=== PATIENT | male | born 1935 | race African-American/Black ===

== ENCOUNTER 2018-01-15 10:04 | Emergency (ER) | payer MEDICARE, OTHER ==
[~2018-01-15] VITALS: Ht 175.3 cm; Wt 90.7 kg
[~2018-01-15 10:04] MED LIST: ALBUTEROL2.5 MG/3 M HHN; ALENDRONAT70 MG/75 M PO; ATROVENT HFA12.9 GM IH; CALCIUM500 M3 PO; DULERA 100 MCG/13 GM INH; NORVASC2.5 MG ORAL; OMEPRAZOLE20 M2 ORAL; SIMVASTATIN20 MG ORAL; SPIRIVA INHALE1 PUF1 INH
[2018-01-15] MEDS ORDERED: ATORVASTATIN CA20 MG ORAL (10:14)
[2018-01-15] MEDS ORDERED: SYMBICORT 16010.2 G1 IH (10:14)
[2018-01-15 10:18] VITALS: BP 168/87
[2018-01-15] MEDS ORDERED: Isovue-300 100ml vial INJ PRN (10:30)
[2018-01-15 10:40] VITALS: BP 168/87
--- NOTE | 2018-01-15 11:00 | Emergency Room Report ---
History of Present Illness General Chief Complaint: General Complaint Source: Patient Present Illness HPI She states that he has had difficulty swallowing at times with food. He states that he will have to swallow multiple times in order to pass food. He states that occasionally he has had to vomit to expel the food. He was seen at his outpatient clinic several weeks ago. He was referred to a wage analyst and underwent evaluation by the wage analyst. He had planned to get an upper endoscopy and on the day he was scheduled for this the anesthesiologist declined the procedure because he was concerned of his age and history of lung cancer. The endoscopy was canceled. He did go back and see the wage analyst who now has him scheduled for an endoscopy on February 05 at [facility]. The patient states he would like a faster workup then February 05. He denies any current issues or pain. He has no food discomfort at this time. He is just hoping to see a wage analyst and undergo an endoscopy earlier. He currently has no other complaints. Allergies: Coded Allergies: No Known Allergies (Verified , 01/06/12) Patient History Past Medical History: see triage record, HTN, CAD, GERD, other - Lung Ca Social History: Denies: smoking, alcohol use, drug use Reviewed Nursing Documentation: PMH: Agreed; PSxH: Agreed Nursing Documentation-PMH Hx Cardiac Problems: Yes Hx Hypertension: Yes Hx COPD: Yes Hx Cancer: Yes Hx Gastrointestinal Problems: Yes Hx Neurological Problems: No Review of Systems All Other Systems: negative except mentioned in HPI Physical Exam Vital Signs Date Time Temp Pulse Resp B/P (MAP) Pulse Ox O2 Delivery O2 Flow Rate FiO2 01/15/18 10:10 97.7 79 20 168/87 100 Room Air 97.7 Sp02 EP Interpretation: reviewed, normal General Appearance: no apparent distress, alert, GCS 15, non-toxic Head: normocephalic, atraumatic Eyes: bilateral eye normal inspection, bilateral eye PERRL ENT: hearing grossly normal, normal pharynx, no angioedema, normal voice Neck: normal inspection Respiratory: no respiratory distress, no retraction, no accessory muscle use, speaking full sentences Rectal: deferred Musculoskeletal: gait/station normal Neurologic: alert, oriented x3, responsive, motor strength/tone normal, sensory intact, speech normal Psychiatric: judgement/insight normal, memory normal, mood/affect normal, no suicidal/homicidal ideation Skin: normal color, no rash, warm/dry, well hydrated Medical Decision Making Diagnostic Impression: Primary Impression: Dysphagia ER Course Patient has dysphagia. He is currently not in an acute episode. He has had a full workup by a wage analyst and is scheduled for a February 05 endoscopy. I had planned on doing a workup, however, after discussion with this patient I felt that this was unnecessary. The patient is not currently having any symptoms. The patient has a scheduled upper endoscopy with a wage analyst. Further discussion with the patient I educated him that if he were to consult with one of our gastroenterologists it would likely take longer given that the workup would have to be started from the beginning. The patient decided that he would just continue with his previously scheduled February 05 endoscopy. I did educate the patient on the signs and symptoms of a retained esophageal foreign body. He indicated understanding. He decided to leave without further workup and with my recommendation. The patient is given close return precautions and follow-up instructions. Last Vital Signs Date Time Temp Pulse Resp B/P (MAP) Pulse Ox O2 Delivery O2 Flow Rate FiO2 01/15/18 10:18 97.7 20 168/87 100 Room Air 97.7 01/15/18 10:10 79 Disposition: HOME, SELF-CARE Condition: Stable Referrals: NON PHYSICIAN (PCP) BIBI BRAXTON D.O. January 15, 2018 11:00
== END 2018-01-15 10:45 | disposition home or self-care (01) ==
LOC: EMR 10:19
DX: R13.10 Dysphagia, unspecified (principal); I10 Essential (primary) hypertension; J44.9 Chronic obstructive pulmonary disease, unspecified; I25.10 Atherosclerotic heart disease of native coronary artery without angina pectoris; Z85.118 Personal history of other malignant neoplasm of bronchus and lung
CPT/HCPCS: 99282

== ENCOUNTER 2018-09-22 13:05 | Inpatient (IN) | payer MEDICARE, OTHER ==
[~2018-09-22] VITALS: Ht 175.3 cm; Wt 72.6 kg
[~2018-09-22 13:05] MED LIST changes: +ATORVASTATIN CA20 MG ORAL; +SYMBICORT 16010.2 G1 IH
--- NOTE | 2018-09-22 13:21 | NUR ---
ED Nurse Note: Pt came in from home ambulatory by himself, hx of edson JONES and now is c/o N/V and body pain. Last chemo an radiation was 1 week ago Applied monitor on the patient.
[2018-09-22] MEDS ORDERED: Morphine Sulfate 4mg/ml Inj (IV/IM USE ONLY) IVP ONE (13:45)
[2018-09-22 13:58] VITALS: BP 100/75
[2018-09-22 14:00] LABS: BASOPHILS % (AUTO) 1.4 % (0.0-2.0); EOSINOPHILS % (AUTO) 0.2 % (0.0-3.0); HEMATOCRIT 41.5 % (42.0-52.0); HEMOGLOBIN 13.9 G/DL (14.2-18.0); LYMPHOCYTES % (AUTO) 17.7 % (20.0-45.0); MEAN CORPUSCULAR VOLUME 85 FL (80-99); MONOCYTES % (AUTO) 14.8 % (1.0-10.0); NEUTROPHILS % (AUTO) 65.9 % (45.0-75.0); PLATELET COUNT 135 K/UL (150-450); RED BLOOD COUNT 4.88 M/UL (4.70-6.10); RED CELL DISTRIBUTION WIDTH 14.3 % (11.6-14.8); WHITE BLOOD COUNT 3.7 K/UL (4.8-10.8)
[2018-09-22 14:12] LABS: ANION GAP 10 mmol/L (5-15); BLOOD UREA NITROGEN 27 mg/dL (7-18); CALCIUM 9.1 MG/DL (8.5-10.1); CARBON DIOXIDE 28 MMOL/L (21-32); CHLORIDE 101 MMOL/L (98-107); CREATININE 1.3 MG/DL (0.55-1.30); POTASSIUM 3.9 MMOL/L (3.5-5.1); SODIUM 139 MMOL/L (136-145)
[2018-09-22 14:24] LABS: ALANINE AMINOTRANSFERASE 22 U/L (12-78); ALBUMIN 2.6 G/DL (3.4-5.0); ALBUMIN/GLOBULIN RATIO 0.6 (1.0-2.7); ALKALINE PHOSPHATASE 74 U/L (46-116); ASPARTATE AMINO TRANSFERASE 36 U/L (15-37); BILIRUBIN,TOTAL 0.6 MG/DL (0.2-1.0); CKMB 1.3 NG/ML (0.0-3.6); CREATINE KINASE 83 U/L (26-308)
--- NOTE | 2018-09-22 15:35 | Emergency Room Report ---
History of Present Illness General Chief Complaint: Vomiting Source: Patient Present Illness HPI Patient has a history of esophageal cancer. He is undergoing radiation and chemotherapy. He states that he has all over body pain. He states he can no longer tolerate the pain. He does have [place] at home but states that he does not want to take too much of this because he doesn't want to be addicted to narcotics. He is very frustrated and wants to know if there are any other options for his chronic pain. He denies new symptoms. He denies fever or chills. He denies nausea or vomiting. He denies new pain. He has no other complaints. He does receive all of his care at [facility]. Allergies: Coded Allergies: No Known Allergies (Verified , 01/06/12) Patient History Past Medical History: see triage record, HTN, COPD, GERD Social History: Denies: smoking, alcohol use, drug use Reviewed Nursing Documentation: PMH: Agreed; PSxH: Agreed Nursing Documentation-PMH Past Medical History: No History, Except For Hx Cardiac Problems: Yes Hx Hypertension: Yes Hx COPD: Yes Hx Cancer: Yes Hx Gastrointestinal Problems: Yes Hx Neurological Problems: No Review of Systems All Other Systems: negative except mentioned in HPI Physical Exam Vital Signs Date Time Temp Pulse Resp B/P (MAP) Pulse Ox O2 Delivery O2 Flow Rate FiO2 09/22/18 13:11 98.1 129 20 85/60 96 Room Air Sp02 EP Interpretation: reviewed, normal General Appearance: no apparent distress, alert, GCS 15, non-toxic Head: normocephalic, atraumatic Eyes: bilateral eye normal inspection, bilateral eye PERRL ENT: hearing grossly normal, normal pharynx, no angioedema, normal voice Neck: full range of motion, supple/symm/no masses Respiratory: chest non-tender, lungs clear, normal breath sounds, no respiratory distress, no retraction, no accessory muscle use, speaking full sentences Cardiovascular #1: regular rate, rhythm, no edema Gastrointestinal: normal bowel sounds, non tender, soft, non-distended, no guarding, no rebound Rectal: deferred Musculoskeletal: back normal, gait/station normal, normal range of motion, non- tender, calf tenderness Neurologic: alert, oriented x3, responsive, motor strength/tone normal, sensory intact, speech normal Psychiatric: judgement/insight normal, memory normal, mood/affect normal, no suicidal/homicidal ideation Skin: normal color, no rash, warm/dry, well hydrated Medical Decision Making Diagnostic Impression: Primary Impression: Intractable pain Additional Impression: Esophageal cancer ER Course This patient has intractable pain. He is not on a good pain regimen at home. Possibly this patient could go on to fentanyl patches to have a slow release rather than being on [place] which has a lot of up and down with pain control. The patient is admitted for further pain management. The patient does not want to be on heavy or high doses of narcotics. He was given morphine here in the emergency department to ease his discomfort. Laboratory Tests Test 09/22/18 13:40 White Blood Count 3.7 K/UL (4.8-10.8) L Red Blood Count 4.88 M/UL (4.70-6.10) Hemoglobin 13.9 G/DL (14.2-18.0) L Hematocrit 41.5 % (42.0-52.0) L Mean Corpuscular Volume 85 FL (80-99) Mean Corpuscular Hemoglobin 28.5 PG (27.0-31.0) Mean Corpuscular Hemoglobin Concent 33.6 G/DL (32.0-36.0) Red Cell Distribution Width 14.3 % (11.6-14.8) Platelet Count 135 K/UL (150-450) L Mean Platelet Volume 4.8 FL (6.5-10.1) L Neutrophils (%) (Auto) 65.9 % (45.0-75.0) Lymphocytes (%) (Auto) 17.7 % (20.0-45.0) L Monocytes (%) (Auto) 14.8 % (1.0-10.0) H Eosinophils (%) (Auto) 0.2 % (0.0-3.0) Basophils (%) (Auto) 1.4 % (0.0-2.0) Prothrombin Time 10.7 SEC (9.30-11.50) Prothrombin Time INR 1.0 (0.9-1.1) PTT 25 SEC (23-33) Sodium Level 139 MMOL/L (136-145) Potassium Level 3.9 MMOL/L (3.5-5.1) Chloride Level 101 MMOL/L (98-107) Carbon Dioxide Level 28 MMOL/L (21-32) Anion Gap 10 mmol/L (5-15) Blood Urea Nitrogen 27 mg/dL (7-18) H Creatinine 1.3 MG/DL (0.55-1.30) Estimate Glomerular Filtration Rate mL/min (>60) Glucose Level 92 MG/DL (74-106) Calcium Level 9.1 MG/DL (8.5-10.1) Total Bilirubin 0.6 MG/DL (0.2-1.0) Aspartate Amino Transferase (AST) 36 U/L (15-37) Alanine Aminotransferase (ALT) 22 U/L (12-78) Alkaline Phosphatase 74 U/L (46-116) Total Creatine Kinase 83 U/L (26-308) Creatine Kinase MB 1.3 NG/ML (0.0-3.6) Creatine Kinase MB Relative Index 1.5 Troponin I 0.008 ng/mL (0.000-0.056) Total Protein 6.7 G/DL (6.4-8.2) Albumin 2.6 G/DL (3.4-5.0) L Globulin 4.1 g/dL Albumin/Globulin Ratio 0.6 (1.0-2.7) L Lipase 59 U/L (73-393) L EKG Diagnostic Results Rate: tachycardiac Rhythm: other - S.tachycardia, LAFB ST Segments: no acute changes Rhythm Strip Diag. Results EP Interpretation: yes Rate: 110's Rhythm: NSR, no PVC's, no ectopy Chest X-Ray Diagnostic Results Chest X-Ray Diagnostic Results : Chest X-Ray Ordered: Yes # of Views/Limited/Complete: 1 View Indication: Other EP Interpretation: Yes Interpretation: no consolidation, no effusion, no pneumothorax, no acute cardiopulmonary disease Impression: No acute disease Electronically Signed by: Rabia Boyle DO Last Vital Signs Date Time Temp Pulse Resp B/P (MAP) Pulse Ox O2 Delivery O2 Flow Rate FiO2 09/22/18 14:21 98.1 09/22/18 14:00 113 15 Room Air 09/22/18 13:58 100/75 100 Disposition: ADMITTED INPATIENT Condition: Stable Referrals: NON PHYSICIAN (PCP) Rabia Boyle DO Sep 22, 2018 15:35
--- NOTE | 2018-09-22 15:51 | Diagnostic Imaging Report ---
Indication: Chest pain Technique: One view of the chest Comparison: 04/12/2013 Findings: A cerclage wire is again demonstrated in the right chest wall. The lungs are somewhat hyperinflated. Minimal scarring is seen at the left lung apex. The lungs and pleural spaces are otherwise clear. Heart size is normal. The aorta is slightly tortuous. Impression: No acute process
[2018-09-22 16:36] VITALS: BP 100/73
--- NOTE | 2018-09-22 18:20 | NUR ---
ED Nurse Note: report given to Franck Hernandez RN. waiting for packet/ER registration to be done.
[2018-09-22 18:52] VITALS: BP 113/79
--- NOTE | 2018-09-22 18:54 | NUR ---
NURSE NOTES: PT RECEIVED FROM ER. REPORT FROM BRANDT TORRES, FROM ER. VSS AND IN NO APPARENT DISTRESS AT THIS TIME. PT HAS JONAS AT BEDSIDE AND STATES HE WOULD LIKE TO PLACE IT IN NURSE INDUSTRIAL ENGINEERING INTERN'S SAFE. RN SPOKE TO GREG (NURSE SUP) AND MADE AWARE. PT STATES HE HAS PAIN 3-4/10 AND STATES THAT IS A PLEASANT LEVEL OF PAIN FOR NOW. PT RECEIVED MORPHINE 4MG IVP AND STATES HE HAD NO ADVERSE REACTIONS AND HELPED RELIEVE THE PAIN. 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 PT VERBALIZED UNDERSTANDING.
--- NOTE | 2018-09-22 19:27 | NUR ---
HAND-OFF: Report given to Carly OG RN.
--- NOTE | 2018-09-22 19:30 | NUR ---
NURSE NOTES: Received patient report from Franck Biswas RN. Patient is in bed resting at this time appearing to be in no distress at this time. Patient does not verbalize any pain or discomfort at this time, but states he does has pain all over a lot, but morphine in ER helped and he would like a patch to control his pain. Bed is in lowest position with call light within reach. Will continue to monitor and follow plan of care.
[2018-09-22 20:00] VITALS: BP 115/86
[2018-09-22] MEDS ORDERED: HYDROcodone/Acetamin 10/325 tab ORAL PRN ×2 (21:30→21:45)
[2018-09-22] MEDS ORDERED: Albuterol 90mcg Inhaler 8gm INH PRN (22:45)
[2018-09-22] MEDS: Atorvastatin 20mg tab ORAL SCH (23:15)
[2018-09-23] VITALS: BP 105/64
[2018-09-23 04:00] VITALS: BP 111/74
--- NOTE | 2018-09-23 07:56 | NUR ---
HAND-OFF: Report given to Erinn CARLTON.
[2018-09-23 08:00] VITALS: BP 116/80
[2018-09-23] MEDS: Tums 500mg ORAL SCH ×2 (09:00→17:35)
[2018-09-23] MEDS: Heparin 5000 units/ml inj SUBQ SCH ×2 (09:00→21:00)
[2018-09-23] MEDS: Morphine Sulfate 4mg/ml Inj (IV/IM USE ONLY) IVP PRN ×2 (09:37→18:43)
--- NOTE | 2018-09-23 10:30 | NUR ---
NURSE NOTES: Dr Weldon here earlier in shift pt had concerns with pain in esophagus . Dr gave orders fro lidocaine swallow as well as zofran for nausea. PT vomiting up sputum. " I am not throwing up it is just a side effect of chemo medicine. Electronic Assembly explained what n/v was. " Do what you need fro me " Provided with Zofran ,and lidocaine. Current plan of plan will be followed
[2018-09-23] MEDS: Lidocaine 2% Visc 15ml soln ORAL PRN ×2 (10:59→15:04)
[2018-09-23 12:00] VITALS: BP 125/80
--- NOTE | 2018-09-23 15:30 | History and Physical Report ---
DATE OF ADMISSION: 09/22/2018 HISTORY OF PRESENT ILLNESS: This is an 83-year-old male came to the emergency room for having recurrent abdominal pain, nausea, vomiting, and unable to tolerate diet. The patient had been diagnosed with head and neck cancer, has been taking chemotherapy and radiation treatment at [facility]. Last chemo was two weeks ago and since he has been throwing up. PAST MEDICAL HISTORY: Significant for hypertension, hyperlipidemia, head and neck cancer, throat cancer, and GERD. MEDICATIONS: He is taking alendronate, Lipitor, calcium, bronchodilator, , omeprazole, and simvastatin. PHYSICAL EXAMINATION: GENERAL: This is an elderly cachectic male, who looks critically sick. VITAL SIGNS: Blood pressure is 116/87, temperature 98.3, and respirations 18. HEENT: Pharynx is clear. Trachea midline. CHEST: Bilaterally decreased breath sounds. CARDIOVASCULAR: Irregular rhythm. Tachycardia. ABDOMEN: Soft. Positive bowel sounds. EXTREMITIES: No CCE. NEUROLOGICAL: No focal deficit. GENITOURINARY: Deferred. LYMPHATICS: No lymphadenopathy. LABORATORY DATA: White count 3.7, hemoglobin 14, hematocrit 42, and platelets 135,000. Chemistry panel, sodium 139, potassium 3.9, BUN 27, and creatinine 1.3. Troponin 0.08. Albumin 2.6. Coagulation, INR is 1.0. IMAGING: The patient had chest x-ray showing no acute process. ASSESSMENT: 1. Recurrent nausea and vomiting. 2. Sepsis. 3. Throat cancer. 4. Severe malnutrition. PLAN: We will currently continue NPO, intravenous fluids and Zofran 4 mg IV every four hours p.r.n. Consider GI consult as well as Hematology/Oncology consult. Isiah Vizcaino M.D. DR: AMIE JOB#: [id number] CC:
[2018-09-23 16:00] VITALS: BP 115/79
--- NOTE | 2018-09-23 16:47 | Consultation ---
History of Present Illness General Chief Complaint: Vomiting Present Illness Allergies: Coded Allergies: No Known Allergies (Verified , 01/06/12) Medication History Scheduled Albuterol Sulfate* (Albuterol Sulfate Hhn*), 2.5 MG HHN Q4H, (Reported) Alendronate Sodium (Alendronate Sodium), 70 MG PO QWEEK, (Reported) Amlodipine Besylate (Norvasc), 2.5 MG ORAL DAILY, (Reported) Atorvastatin Calcium* (Atorvastatin Calcium*), 20 MG ORAL BEDTIME, (Reported) Calcium Carbonate (Calcium), 500 MG PO BID, (Reported) Ipratropium [place] (Atrovent Hfa), 12.9 GM IH needed, (Reported) Mometasone/Formoterol (Dulera 100 Mcg/5 Mcg Inhaler), 2 PUFFS INH EVERY 12 HOURS , (Reported) Omeprazole (Omeprazole), 20 MG ORAL DAILY, (Reported) Simvastatin (Zocor), 20 MG ORAL BEDTIME, (Reported) Tiotropium [place] (Spiriva), 1 PUFF INH DAILY, (Reported) Miscellaneous Medications Budesonide/Formoterol Fumarate (Symbicort 160-4.5 Mcg Inhaler), Unknown Dose IH, (Reported) Patient History Healthcare decision maker /daughter Resuscitation status Full Code Advanced Directive on File Physical Exam Last 24 Hour Vital Signs Date Time Temp Pulse Resp B/P (MAP) Pulse Ox O2 Delivery O2 Flow Rate FiO2 09/23/18 09:00 Room Air 09/23/18 09:00 107 116/80 09/23/18 08:00 98.1 95 20 116/80 (92) 99 09/23/18 04:00 98.3 99 18 111/74 (86) 96 09/23/18 00:00 97.3 96 18 105/64 (78) 95 09/22/18 21:12 Room Air 09/22/18 20:00 97.6 105 19 115/86 (96) 96 09/22/18 18:52 97.2 108 18 113/79 (90) 96 09/22/18 18:31 98.1 101 14 100/73 96 Room Air 09/22/18 16:36 98.1 101 14 100/73 96 Room Air Intake and Output 09/22/18 09/23/18 19:00 07:00 # Bowel Movements 1 Height (Feet): 5 Height (Inches): 9.00 Weight (Pounds): 160 Medications Current Medications Medications (Trade) Dose Ordered Sig/Sherry Route PRN Reason Start Time Stop Time Status Last Admin Dose Admin Acetaminophen/ Hydrocodone Bitart ([place] 10/325) 1 tab Q4H PRN ORAL moderate pain 09/22/18 21:45 09/29/18 21:29 Albuterol Sulfate (Proventil MDI) 2 puff Q4H PRN INH Shortness of Breath 09/22/18 22:45 10/22/18 22:44 Amlodipine Besylate (Norvasc) 2.5 mg DAILY ORAL 09/23/18 09:00 10/23/18 08:59 Atorvastatin Calcium (Lipitor) 20 mg BEDTIME ORAL 09/22/18 23:15 10/22/18 23:14 09/22/18 23:15 Calcium Carbonate (Tums) 500 mg BID ORAL 09/23/18 09:00 10/23/18 08:59 Heparin Sodium (Porcine) (Heparin 5000 units/ml) 5,000 units EVERY 12 HOURS SUBQ 09/23/18 09:00 10/23/18 08:59 Lidocaine (Lidoderm 5% PATCH) 1 patch Q12H TDERMAL 09/22/18 22:00 10/22/18 21:59 09/23/18 10:42 Lidocaine HCl (Xylocaine Viscous) 15 ml Q4H PRN ORAL For Pain 09/23/18 09:15 10/23/18 09:14 09/23/18 15:04 Morphine Sulfate (Morphine Sulfate) 2 mg Q6H PRN IVP SEVERE PAIN 09/22/18 21:30 09/29/18 21:29 09/23/18 09:37 Ondansetron HCl (Zofran) 4 mg Q4H PRN IVP Nausea & Vomiting 09/23/18 09:30 10/23/18 09:29 09/23/18 15:04 Sodium Chloride 1,000 ml @ 100 mls/hr Q10H IV 09/22/18 21:31 10/22/18 21:30 09/23/18 07:56 Tiotropium [place] (Spiriva Inhaler) 1 puff DAILY INH 09/23/18 09:00 10/23/18 08:59 09/23/18 08:53 Assessment/Plan Assessment/Plan Hematology/Oncology Consultation Requesting MD: Carrillo Joyce Date of Service:09/23/18 Reason for consultation: Esophageal cancer and Thrombocytopenia HPI: This is a 83 years old male who came to the emergency room for having recurrent abdominal pain.He has history of esophageal cancer. He is undergoing radiation and chemotherapy at [facility] [place].Last chemo was two weeks ago and since he has been throwing up. He states that he has all over body pain and states he can no longer tolerate the pain. He does have [place] at home but states that he does not want to take too much of this because he doesn't want to be addicted to narcotics.He is very frustrated and wants to know if there are any other options for his chronic pain. He denies new symptoms. He denies fever or chills, denies nausea or vomiting, denies new pain.The patient is admitted for further pain management. The patient does not want to be on heavy or high doses of narcotics. He was given morphine here in the emergency department to ease his discomfort. Hematology/Oncology was consulted due to Esophageal cancer and Thrombocytopenia, plt 135. Past Medical History: Significant for hypertension, hyperlipidemia, esophageal cancer, and GERD. Social History: Denies: smoking, alcohol use, drug use Allergies:No Known Allergies Medications: He is taking alendronate, Lipitor, calcium, bronchodilator, omeprazole, and simvastatin. Review of Systems Cardiovascular regular rate, rhythm, no edema Gastrointestinal: normal bowel sounds, non tender, soft, non-distended, no guarding, no rebound Rectal: deferred Musculoskeletal: back normal, gait/station normal, normal range of motion, non- tender, calf tenderness Neurologic: alert, oriented x3, responsive, motor strength/tone normal, sensory intact, speech normal Psychiatric: judgement/insight normal, memory normal, mood/affect normal, no suicidal/homicidal ideation Skin: normal color, no rash, warm/dry, well hydrated Physical Exam Sp02 EP Interpretation: reviewed, normal General Appearance: no apparent distress, alert, GCS 15, non-toxic Head: normocephalic, atraumatic Eyes: bilateral eye normal inspection, bilateral eye PERRL ENT: hearing grossly normal, normal pharynx, no angioedema, normal voice Neck: full range of motion, supple/symm/no masses Respiratory: chest non-tender, lungs clear, normal breath sounds, no respiratory distress, no retraction, no accessory muscle use, speaking full sentences Laboratory Tests: Wbc 3,Hgb 13, Plt 135 Assessment/Recommendations # Esophageal Cancer--undergoing radiation and chemotherapy at [facility] [place] , last chemo was two weeks Cancer made at outside facility --> review outside imaging and treatments patient has received --> outside labs and pathology to be reviewed --> defer to outpatient oncologist for further care, patient requires followup # Thrombocytopenia - likely due to Esophageal cancer, also could be related to underlying medications patient has received. --> Hep panel and HIV ordered --> US abd to evaluate for cirrhosis and hsm ordered --> Peripheral smear ordered to evaluate for blasts /schistocytes --> abx and other meds have been reviewed --> ok for ppx if plt >50k w/ either heparin or lovenox --> Transfuse if Plt < 20k and fever, or if Plt < 10k without fever # Anemia of chronic disease due to underlying chronic medical issues, multifactorial --> Anemia workup has been ordered --> No evidence of hemolysis is noted, peripheral smear has been reviewed. --> Hgb goal >7. Transfuse prn. --> Epogen or iron at this time is not particularly indicated --> Medications have been reviewed The timing of this note does not necessarily reflect the time of the patient was seen Greatly appreciate consultation! Jacinto Jean-Baptiste MD Sep 23, 2018 16:47
--- NOTE | 2018-09-23 16:56 | NUR ---
NURSE NOTES: Pt awake call light in reach currently in stable condition current plan of care will be followed
--- NOTE | 2018-09-23 19:13 | NUR ---
NURSE NOTES: Follow call made to Dr Vizcaino in regards to NPO status by DR miller for GI. Orders remain pending for NPO status. as well as possible procedure for tomorrow to assess pt esophagus
--- NOTE | 2018-09-23 19:30 | NUR ---
NURSE NOTES: Report taken from BRANDT Weiner. Patient awake and alert in bed. No signs of respiratory distress. Stated that his pain is 2/10, medication was given earlier and feels that it is helping. RN explained to patient that he will be NPO, except for ice chips, at midnight for EGD procedure in the morning. RN contacted MD, order was placed for procedure. IV site is c/d/i and patent. Call light within reach, bed in lowest position.
--- NOTE | 2018-09-23 19:52 | NUR ---
NURSE NOTES: Oncoming nurse Gilson made aware that Dr Vizcaino was phoned to follow up on GI consult rendered earlier as well as GI orders.
--- NOTE | 2018-09-23 19:54 | NUR ---
HAND-OFF: Report given to Baltazar CARLTON.
[2018-09-23 20:00] VITALS: BP 100/70
--- NOTE | 2018-09-23 20:15 | NUR ---
CASE MANAGEMENT: REVIEW 83/M BIBA FROM HOME CC: VOMITING . S/P CHEMO SI: INTRACTABLE PAIN . ESOPHAGEAL CA T 98.1 HR 129 RR 20 BP 85/60 SAT 96% ROOM AIR WBC 3.[address] 135 LIPASE 59 IS: NS IVF BOLUS X1 MORPHINE IV X1 ZOFRAN IV X1 PATIENT ADMITTED TO MED/SURG UNIT 09/22/2018 DCP: PATIENT IS FROM HOME
--- NOTE | 2018-09-23 20:45 | NUR ---
NURSE NOTES: Consent form signed for procedure. EGD with possible biopsy, hemostasis, and dilation.
[2018-09-23] MEDS: Atorvastatin 20mg tab ORAL SCH (20:55)
--- NOTE | 2018-09-23 21:00 | NUR ---
NURSE NOTES: Help heparin, platelet count 131, and per pre-procedure. Addendum: 09/24/18 at 0665 by Gilson Pinon RN Joseph
--- NOTE | 2018-09-23 22:00 | Consultation ---
DATE OF CONSULTATION: 09/23/2018 GASTROLOGY CONSULTATION CHIEF COMPLAINT: I was asked to see this patient by Dr. Kishor Vizcanio for evaluation of esophageal cancer. HISTORY OF PRESENT ILLNESS: The patient is a pleasant unfortunate 83-year-old man, who was initially diagnosed with esophageal cancer in November of 2017 at [facility]. He subsequently underwent an endoscopy with stent placement in approximately January of last year. He has been receiving chemotherapy and radiation but these were apparently both ended about two weeks ago. He states since then he has noted chest pain, burning sensation, dysphagia, and difficulty to eat. He states that water and liquids do go down, but it takes some time for a food, he has to threw up. PAST MEDICAL HISTORY: History of hypertension, hyperlipidemia, history of esophageal cancer, gastroesophageal reflux, and status post esophageal stent placement. MEDICATIONS: Reportedly on alendronate, Lipitor, calcium, bronchodilator, omeprazole, and simvastatin. See the chart list for details. FAMILY HISTORY: Noncontributory. SOCIAL HISTORY: The patient is . He has 6 children. He was a previous smoker. He stopped this in 2009. He also previously drank, but he no longer drinks alcohol. REVIEW OF SYSTEMS: Otherwise negative. PHYSICAL EXAMINATION: GENERAL: A pleasant thin man, seen in his room, in no distress. HEENT: Normocephalic and atraumatic. Sclerae anicteric. Oropharynx clear. NECK: Supple. CHEST: Clear to auscultation. CARDIOVASCULAR: Revealed a regular rate. ABDOMEN: Soft with good bowel sounds. EXTREMITIES: Revealed no edema. LABORATORY DATA: Noted. ASSESSMENT: This patient presents with esophageal cancer for about a year or so. He has undergone an esophageal stent placement. His dysphagia is clearly related to malignancy issue although it is not clear whether it is due to stent problems, stent narrowing, stent migration, or tumor ingrowth. The patient will have to undergo an endoscopy tomorrow with possible dilation if needed. Should there be tumor ingrowth then further treatment is necessary. RECOMMENDATIONS: Per above discussion and per orders written in the chart. This patient is scheduled for endoscopy tomorrow. Thank you for asking me to participate in the care of this patient. William Ruby M.D. DR: JOSE JOB#: [id number] CC: MIRIAN
[2018-09-24] VITALS (15 sets, daily range): BP systolic 99–127; BP diastolic 62–78
[2018-09-24] MEDS: Morphine Sulfate 4mg/ml Inj (IV/IM USE ONLY) IVP PRN ×2 (00:41→10:39)
--- NOTE | 2018-09-24 06:40 | NUR ---
NURSE NOTES: Guy Henning and William came to retrieve patient for GI procedure.
--- NOTE | 2018-09-24 06:50 | Anethesia Preoperative Eval ---
Anesthesia Pre-op PMH/ROS General Date of Evaluation: Sep 24, 2018 Time of Evaluation: 06:45 Anesthesiologist: Roopa Tyler CRNA ASA Score: ASA 3 Mallampati Score Class I : Soft palate, uvula, fauces, pillars visible Class II: Soft palate, uvula, fauces visible Class III: Soft palate, base of uvula visible Class IV: Only hard plate visible Mallampati Classification: Class II Surgeon: Flori Diagnosis: Intractable pain, esophageal cancer Surgical Procedure: EGD with dilation Anesthesia History: none Social History: smoking, alcohol use, drug use Family History: no anesthesia problems Allergies: Coded Allergies: No Known Allergies (Verified , 01/06/12) Medications: see eMAR Patient NPO?: Yes NPO Date: Sep 23, 2018 NPO Time: 2300 Past Medical History Cardiovascular: Reports: HTN, other - tachycardia, hyperlipidemia; Denies: CAD, OR, valve dz, arrhythmia Pulmonary: Reports: COPD, other - Hx of RLL lung CA s/p lobectomy; Denies: asthma, ALEXANDRO Gastrointestinal/Genitourinary: Reports: GERD, other - Esophageal CA, (+) chemotherapy and radiation; Denies: CRI, ESRD Neurologic/Psychiatric: Denies: dementia, CVA, depression/anxiety, TIA, other Endocrine: Denies: DM, hypothyroidism, steroids, other HEENT: Denies: cataract (L), cataract (R), glaucoma, [place] (L), [place] (R), other Hematology/Immune: Denies: anemia, DVT, bleeding disorder, other Musculoskeletal/Integumentary: Denies: OA, RA, DJD, DDD, edema, other PMH Narrative: as above PSxH Narrative: RLL lobectomy Anesthesia Pre-op Phys. Exam Physician Exam Last Vital Signs Date Time Temp Pulse Resp B/P (MAP) Pulse Ox O2 Delivery O2 Flow Rate FiO2 09/24/18 00:00 98.2 102 19 99/70 (80) 99 09/23/18 21:00 Room Air Constitutional: NAD, other - c/o pain 6/10 Neurologic: CN 2-12 intact Cardiovascular: other - ST with intermittent PVC Respiratory: CTA Gastrointestinal: S/NT/ND Airway Exam Mallampati Score: Class II MO: full Neck: no limiations TMD: >3 FB ROM: full Teeth: missing Dentures: upper, lower Anesthesia Pre-op A/P Labs Labs Test 09/22/18 13:40 White Blood Count 3.7 K/UL (4.8-10.8) Red Blood Count 4.88 M/UL (4.70-6.10) Hemoglobin 13.9 G/DL (14.2-18.0) Hematocrit 41.5 % (42.0-52.0) Mean Corpuscular Volume 85 FL (80-99) Mean Corpuscular Hemoglobin 28.5 PG (27.0-31.0) Mean Corpuscular Hemoglobin Concent 33.6 G/DL (32.0-36.0) Red Cell Distribution Width 14.3 % (11.6-14.8) Platelet Count 135 K/UL (150-450) Mean Platelet Volume 4.8 FL (6.5-10.1) Neutrophils (%) (Auto) 65.9 % (45.0-75.0) Lymphocytes (%) (Auto) 17.7 % (20.0-45.0) Monocytes (%) (Auto) 14.8 % (1.0-10.0) Eosinophils (%) (Auto) 0.2 % (0.0-3.0) Basophils (%) (Auto) 1.4 % (0.0-2.0) Prothrombin Time 10.7 SEC (9.30-11.50) Prothromb Time International Ratio 1.0 (0.9-1.1) Activated Partial Thromboplast Time 25 SEC (23-33) Sodium Level 139 MMOL/L (136-145) Potassium Level 3.9 MMOL/L (3.5-5.1) Chloride Level 101 MMOL/L (98-107) Carbon Dioxide Level 28 MMOL/L (21-32) Anion Gap 10 mmol/L (5-15) Blood Urea Nitrogen 27 mg/dL (7-18) Creatinine 1.3 MG/DL (0.55-1.30) Estimat Glomerular Filtration Rate mL/min (>60) Glucose Level 92 MG/DL (74-106) Calcium Level 9.1 MG/DL (8.5-10.1) Total Bilirubin 0.6 MG/DL (0.2-1.0) Aspartate Amino Transf (AST/SGOT) 36 U/L (15-37) Alanine Aminotransferase (ALT/SGPT) 22 U/L (12-78) Alkaline Phosphatase 74 U/L (46-116) Total Creatine Kinase 83 U/L (26-308) Creatine Kinase MB 1.3 NG/ML (0.0-3.6) Creatine Kinase MB Relative Index 1.5 Troponin I 0.008 ng/mL (0.000-0.056) Total Protein 6.7 G/DL (6.4-8.2) Albumin 2.6 G/DL (3.4-5.0) Globulin 4.1 g/dL Albumin/Globulin Ratio 0.6 (1.0-2.7) Lipase 59 U/L (73-393) Studies Pre-op Studies: EKG - Sinus tachycardia, sinus rhythm, no ectopy, CXR - no acute disease process, aorta slightly tortuous Risk Assessment & Plan Assessment: ASA 3 OK to proceed Plan: MAC Status Change Before Surgery: No Pre-Antibiotics Given Within 1 Hr of Incision: No Roopa Tyler CRNA Sep 24, 2018 06:50
[2018-09-24] MEDS ORDERED: NS 500ML IVPB ONE (07:00)
[2018-09-24] MEDS ORDERED: Lidocaine 1% MPF 10mg/ml 5ml ONE (07:00)
[2018-09-24] MEDS ORDERED: fentaNYL 100 mcg/2 mL IV ONE ×2 (07:00→07:01)
--- NOTE | 2018-09-24 07:11 | General Progress Note ---
Assessment/Plan Assessment/Plan Assessment - malnutrition - esophageal CA, s/p stent - dysphagia - mild anemia Recommendations - EGD +/- dilation today - address po diet and nutrition once endoscopic results available - IVF POST ENDOSCOPY ADDENDUM EGD: - Proper esophageal stent position and placement - Esophageal tumor ingrowth at proximal stent margin with mild resultant narrowing - proximal stent margin dilated 12,13.5,15 mm - Will begin puree diet. - BID PPI indefinitely Subjective Allergies: Coded Allergies: No Known Allergies (Verified , 01/06/12) Subjective unable to eat much yesterday NPO for EGD low albumin noted Objective Last 24 Hour Vital Signs Date Time Temp Pulse Resp B/P (MAP) Pulse Ox O2 Delivery O2 Flow Rate FiO2 09/24/18 04:00 98.3 104 19 103/68 (80) 100 09/24/18 00:00 98.2 102 19 99/70 (80) 99 09/23/18 21:00 Room Air 09/23/18 20:00 98.1 82 19 100/70 (80) 97 09/23/18 16:00 97.6 102 18 115/79 (91) 97 09/23/18 12:00 97.9 100 18 125/80 (95) 97 09/23/18 09:00 Room Air 09/23/18 09:00 107 116/80 09/23/18 08:00 98.1 95 20 116/80 (92) 99 Intake and Output 09/23/18 09/24/18 18:59 06:59 Intake Total 1220 ml Balance 1220 ml Intake Oral 220 ml IV Total 1000 ml Height (Feet): 5 Height (Inches): 9.00 Weight (Pounds): 160 Objective WDWN NCAT supple CTA RRR soft ND No edema non focal William Ruby MD Sep 24, 2018 07:11
--- NOTE | 2018-09-24 07:11 | Pre-Procedure Note/Attestation ---
Pre-Procedure Note/Attestation Complete Prior to Procedure Planned Procedure: not applicable Procedure Narrative: EGD, possible dilation Indications for Procedure Pre-Operative Diagnosis: dysphagia Attestation I attest that I discussed the nature of the procedure; its benefits; risks and complications; and alternatives (and the risks and benefits of such alternatives ), prior to the procedure, with the patient (or the patient's legal hospital insurance representative). I attest that, if there was a reasonable possibility of needing a blood transfusion, the patient (or the patient's legal hospital insurance representative) was given the [facility] standardized written summary, pursuant to the [place]ga [place] Blood Safety Act ([place] Health and Safety Code # 1645, as amended). I attest that I re-evaluated the patient just prior to the surgery and that there has been no change in the patient's H&P, except as documented below: William Ruby MD Sep 24, 2018 07:11
[2018-09-24] MEDS ORDERED: Hydromorphone 0.5mg/0.5ml inj IVP PRN (07:30)
--- NOTE | 2018-09-24 07:30 | NUR ---
NURSE NOTES: Received report for pt, pt off floor having EGD done.
--- NOTE | 2018-09-24 07:40 | NUR ---
HAND-OFF: Report given to BRANDT Rodgers.
--- NOTE | 2018-09-24 07:43 | Immediate Post-Op Evaluation ---
Immediate Post-Op Evalulation Immediate Post-Op Evalulation Procedure: EGD with esophageal dilation Date of Evaluation: Sep 24, 2018 Time of Evaluation: 07:40 IV Fluids: 0.9 NS 300ml Blood Pressure Systolic: 102 Blood Pressure Diastolic: 62 Pulse Rate: 94 Respiratory Rate: 12 O2 Sat by Pulse Oximetry: 98 Temperature (Fahrenheit): 98.0 Pain Score (1-10): 0 Nausea: No Vomiting: No Complications none Patient Status: awake, reacts, patent Hydration Status: adequate Given Within 1 Hr of Incision: Roopa Pink CRNA Sep 24, 2018 07:43
--- NOTE | 2018-09-24 07:45 | Endoscopy Procedure Note ---
Endoscopy Procedure Note General Indication for Procedure: dysphagia Procedures Performed: EGD Operative Findings/Diagnosis: esoph stent with tumor ingrowth, dilated Specimen: none Pt Tolerated Procedure Well: Yes Estimated Blood Loss: minimal Anesthesia Anesthesiologist: see report Anesthesia: MAC Medications Medication Given: see anesthesia record Inserted Devices Implant(s) used?: No GI Core Measures 50 yrs or older w/o bx or poly: Not Applicable 10yrs. F/U not recommended: Not Applicable If not recommended, why?: William Ruby MD Sep 24, 2018 07:45
--- NOTE | 2018-09-24 07:46 | Brief Operative Note ---
Immediate Post Operative Note Operative Note Chief Complaint: Dysphagia Pre-op Diagnosis: dysphagia Procedure: egd/dilation Post-op Diagnosis: EGD: - Proper esophageal stent position and placement - Esophageal tumor ingrowth at proximal stent margin with mild resultant narrowing - proximal stent margin dilated 12,13.5,15 mm - Will begin puree diet. - BID PPI indefinitely Post-op Diagnosis: same as pre-op Surgeon: lori Anesthesiologist: see report Anesthesia: MAC Specimen: none Complications: none Condition: stable Fluids: recorded Estimated Blood Loss: minimal Drains: none Implant(s) used?: No William Ruby MD Sep 24, 2018 07:46
--- NOTE | 2018-09-24 08:39 | 48 Hour Post Anesthesia Eval ---
Post Anesthesia Evaluation Procedure: EGD with esophageal dilation Date of Evaluation: Sep 24, 2018 Time of Evaluation: 08:37 Blood Pressure Systolic: 104 0: 71 Pulse Rate: 93 Respiratory Rate: 19 Temperature (Fahrenheit): 97.8 O2 Sat by Pulse Oximetry: 96 Airway: patent Nausea: No Vomiting: No Pain Intensity: 0 Hydration Status: adequate Cardiopulmonary Status: stable Mental Status/LOC: patient returned to baseline Follow-up Care/Observations: per hospitalist Post-Anesthesia Complications: none Follow-up care needed: N/A Roopa Tyler CRNA Sep 24, 2018 08:39
[2018-09-24] MEDS: Tums 500mg ORAL SCH ×2 (08:49→17:29)
[2018-09-24] MEDS: Heparin 5000 units/ml inj SUBQ SCH ×3 (08:53→20:37)
--- NOTE | 2018-09-24 09:00 | NUR ---
NURSE NOTES: Pt brought to unit at 0845 from EGD procedure a/o x 4. Received report from BRANDT Krueger. Pt in no acute distress, denies pain. Pt VS stable. Patent IV to R wrist. Observed pt have breakfast, tolerated well. Will continue to monitor.
--- NOTE | 2018-09-24 13:23 | NUR ---
RD ASSESSMENT & RECOMMENDATIONS SEE CARE ACTIVITY FOR COMPLETE ASSESSMENT DAILY ESTIMATED NEEDS: Needs based on CA, chemo 72.7 25-35 kcals/kg 2925-4371 total kcals 1-2 g protein/kg 73-145 g total protein 25-30ml/kcal mL/kg 6734-4222 total fluid mLs NUTRITION DIAGNOSIS: Swallowing difficulty r/t dysphagia and cancer as evidenced by pt w/ esophageal ca, now s/p EGD, w/ esophageal stent placement, on puree diet on adm. CURRENT DIET: NPO PO DIET RECOMMENDATIONS: REGULAR DIET -> texture per ROLLER SKATER / MD ADDITIONAL RECOMMENDATIONS: 1) F/up w/ calibrated bed scale wt-> on bed w/ SPR 2) Add Ensure w/ oral diet daily 3) Monitor tolerance and %po intake to diet when resumed 4) ROLLER SKATER eval for appropriate texture 5) Check lytes and hydration status daily while NPO
--- NOTE | 2018-09-24 14:07 | General Progress Note ---
Assessment/Plan Assessment/Plan Assessment/Recommendations # Esophageal Cancer--undergoing radiation and chemotherapy at [facility] , last chemo was two weeks Cancer made at outside facility --> review outside imaging and treatments patient has received --> outside labs and pathology to be reviewed --> defer to outpatient oncologist for further care, patient requires followup # Thrombocytopenia - likely due to Esophageal cancer, also could be related to underlying medications patient has received. --> Hep panel and HIV ordered --> US abd to evaluate for cirrhosis and hsm ordered --> Peripheral smear ordered to evaluate for blasts /schistocytes --> abx and other meds have been reviewed --> ok for ppx if plt >50k w/ either heparin or lovenox --> Transfuse if Plt < 20k and fever, or if Plt < 10k without fever # Anemia of chronic disease due to underlying chronic medical issues, multifactorial --> Anemia workup has been ordered --> No evidence of hemolysis is noted, peripheral smear has been reviewed. --> Hgb goal >7. Transfuse prn. --> Epogen or iron at this time is not particularly indicated --> Medications have been reviewed The timing of this note does not necessarily reflect the time of the patient was seen Greatly appreciate consultation! Subjective Constitutional: Denies: no symptoms, chills, diaphoresis, fever, malaise, weakness, other HEENT: Denies: no symptoms, eye pain, blurred vision, tearing, double vision, ear pain, ear discharge, nose pain, nose congestion, throat pain, throat swelling, mouth pain, mouth swelling, other Respiratory: Denies: no symptoms, cough, orthopnea, shortness of breath, SOB with excertion, SOB at rest, sputum, stridor, wheezing, other Gastrointestinal/Abdominal: Denies: no symptoms, abdomen distended, abdominal pain, black stools, tarry stools, blood in stool, constipated, diarrhea, difficulty swallowing, nausea, poor appetite, poor fluid intake, rectal bleeding , vomiting, other Genitourinary: Denies: no symptoms, burning, discharge, frequency, flank pain, hematuria, incontinence, pain, urgency, other Neurologic/Psychiatric: Denies: no symptoms, anxiety, depressed, emotional problems, headache, numbness, paresthesia, pre-existing deficit, seizure, tingling, tremors, weakness, other Endocrine: Denies: no symptoms, excessive sweating, flushing, intolerance to cold, intolerance to heat, increased hunger, increased thirst, increased urine, unexplained weight gain, unexplained weight loss, other Hematologic/Lymphatic: Denies: no symptoms, anemia, easy bleeding, easy bruising, other Allergies: Coded Allergies: No Known Allergies (Verified , 01/06/12) Subjective 09/24: Pt is seen by bedside, had EGD with esophageal dilation this a.m, currently stable, no distress. Objective Last 24 Hour Vital Signs Date Time Temp Pulse Resp B/P (MAP) Pulse Ox O2 Delivery O2 Flow Rate FiO2 09/24/18 13:41 105 16 Room Air 09/24/18 12:00 97.8 88 19 109/69 (82) 94 09/24/18 11:09 97.8 09/24/18 09:00 Room Air 09/24/18 08:49 103 127/75 09/24/18 08:39 93 19 96 09/24/18 08:00 98.1 103 18 127/75 (92) 100 09/24/18 08:00 97.8 93 19 104/71 96 Room Air 09/24/18 07:55 93 19 111/77 98 Room Air 09/24/18 07:50 95 17 101/69 97 Room Air 09/24/18 07:45 99 18 122/72 98 Room Air 09/24/18 07:43 94 12 98 09/24/18 07:40 98.0 95 15 102/62 99 Nasal Cannula 3 09/24/18 04:00 98.3 104 19 103/68 (80) 100 09/24/18 00:00 98.2 102 19 99/70 (80) 99 09/23/18 21:00 Room Air 09/23/18 20:00 98.1 82 19 100/70 (80) 97 09/23/18 16:00 97.6 102 18 115/79 (91) 97 Intake and Output 09/23/18 09/24/18 19:00 07:00 Intake Total 1220 ml Balance 1220 ml Intake Oral 220 ml IV Total 1000 ml Laboratory Tests 09/24/18 08:35: Hepatitis A IgM Antibody [Pending], Hepatitis B Surface Antigen [Pending], Hepatitis B Core IgM Antibody [Pending], Hepatitis C Antibody [Pending], HIV (1& 2) Antibody Rapid Negative Height (Feet): 5 Height (Inches): 9.00 Weight (Pounds): 160 Objective Physical Exam Sp02 EP Interpretation: reviewed, normal General Appearance: no apparent distress, alert, GCS 15, non-toxic Head: normocephalic, atraumatic Eyes: bilateral eye normal inspection, bilateral eye PERRL ENT: hearing grossly normal, normal pharynx, no angioedema, normal voice Neck: full range of motion, supple/symm/no masses Respiratory: chest non-tender, lungs clear, normal breath sounds, no respiratory distress, no retraction, no accessory muscle use, speaking full sentences Jacinto Jean-Baptiste MD Sep 24, 2018 14:07
--- NOTE | 2018-09-24 15:40 | NUR ---
MORTUARY TECHNICIANPERSONNEL GENERALIST MANAGER SI: INTRACTABLE PAIN,VOMITING, S/P EGD T. 97.9 HR 88 RR 16 B/P 109/69 IS: HEPARIN SUBC [facility]@ [facility]
--- NOTE | 2018-09-24 16:14 | NUR ---
Called BARAK hale tech, states he is finishing procedure, will come perform ABD US after.
--- NOTE | 2018-09-24 16:20 | NUR ---
Called Dr. Vizcaino to inform unable to obtain IV access, attempted by self, Emmett CARLTON, and Franck CARLTON without success. Need to notify unable to give iv fluids ordered and if he would like any other interventions to be implemented. Per answering service Dr. Vizcaino is off today, they will page Reddy FARIAS to call me back. Awaiting call back. Addendum: 09/24/18 at 1701 by Ana Maria Fernandez RN @ 1640 Pt tachycardic HR 133, re checked and remained in the 130's. Notified charge nurse. Charge nurse called Dr. Vizcaino office again to notify of tachycardic episode. Awaiting call back from Reddy FARIAS who is terminal operations manager. Pt is asymptomatic, denies chest pain, SOB, A/O X4. Pt verbalizes pain, will give pain medication and continue to monitor. Unable to give IV pain medication, no IV access. Addendum: 09/24/18 at 1837 by Ana Maria Fernandez RN Dr. Vizcaino gave new orders, DC IVF, change morphine to IM route and Zofran to PO route, PICC line placement. refer to orders. Addendum: 09/24/18 at 1931 by Ana Maria Fernandez RN Notified Dr. Vizcaino the pt would like to speak with him prior to PICC placement, Dr. Vizcaino made aware, no new orders given.
[2018-09-24] MEDS ORDERED: Lidocaine 1% Plain 30 ml INJ PRN (18:15)
[2018-09-24] MEDS ORDERED: Heparin 2000 units/Ns 1000ml INJ PRN (18:15)
[2018-09-24] MEDS ORDERED: Morphine Sulfate 4mg/ml Inj (IV/IM USE ONLY) IM PRN (18:30)
--- NOTE | 2018-09-24 19:32 | NUR ---
HAND-OFF: Report given to David CARLTON. Pt left in bed a/o x 4, bed in low position, call light within reach, skid socks on. Endorsed to nurse pt had episode of tachycardia in the 130's, gave [place] HR back to 90's. Last HR at 1909 138, David to follow up with Dr. Vizcaino and make aware of tachycardic episdode. @1939 Dr. Vizcaino came to see the patient, new orders given to BRANDT Hernandez.
[2018-09-24] MEDS ORDERED: Dyna-Hex 2% Top Sol 2oz TOPIC SCH (20:00)
--- NOTE | 2018-09-24 20:30 | NUR ---
Received patient aox4, able to verbalize needs, denies pain. Sinus tachy at 135-142 since hand-off. Dr Vizcaino came to see the patient and ordered stat EKG, also wanted a consult with Dr Nash. EKG showed sinus tachy, Dr Vizcaino and Dr Jerez made aware, Dr Jerez ordered pt to be transferred to Telemetry. Charge nurse made aware.
[2018-09-24] MEDS: Atorvastatin 20mg tab ORAL SCH (20:35)
--- NOTE | 2018-09-24 21:15 | NUR ---
TRANSFER TO FLOOR: Patient transferred to 218-2. Report given to BRANDT Albarran. Belongings and medications given to patient.
--- NOTE | 2018-09-24 21:20 | NUR ---
NURSE NOTES: Received report from BRANDT Patel in 3E. Patient AOx4, no signs of distress. Pain at esophageal area made aware to the nurse. Pain medications available and will be provided for pain relief. No IV site. Attempted IV insertion at this time, unsuccessful. Call light within reach. Bed brakes engaged.
--- NOTE | 2018-09-24 22:00 | Progress Note ---
DATE: 09/25/2018 SUBJECTIVE: This is an 83-year-old male currently doing better. Had EGD. The patient is otherwise good. Nausea and vomiting is improving. OBJECTIVE: VITAL SIGNS: Stable. CHEST: Bilaterally clear. CARDIOVASCULAR: Regular rhythm. ABDOMEN: Soft. EXTREMITIES: CCE. ASSESSMENT: 1. Recurrent nausea and vomiting. 2. History of throat cancer. 3. Hypertension. PLAN: Continue current treatment. Advance diet. GI is on the case. Isiah Vizcaino M.D. DR: BOLA JOB#: [id number] CC:
[2018-09-24] MEDS ORDERED: Lidocaine 1% Plain 30 ml INJ ONE (22:15)
[2018-09-24] MEDS ORDERED: Albuterol 90mcg Inhaler 8gm INH PRN (22:45)
[2018-09-24] MEDS: HYDROcodone/Acetamin 10/325 tab ORAL PRN (22:52)
--- NOTE | 2018-09-24 23:21 | NUR ---
HAND-OFF: Report given to BRANDT Ochoa. [place] 10/325mg given as ordered. Endorsed plan of care.
--- NOTE | 2018-09-24 23:44 | NUR ---
NURSE NOTES: RECEIVED PATIENT RESTING IN BED. PATIENT ALERT AND ORIENTED X4, NO COMPLAINTS OF PAIN AT THIS TIME. FALL PRECAUTIONS IN PLACE: CALL LIGHT AND BEDSIDE TABLE WITHIN REACH, BED IN LOW POSITION. PROVIDED PATIENT WITH URINAL, PATIENT INSISTING WALKING TO BR. ENCOURAGE PATIENT TO CALL FOR ASSISTANCE. PATIENT VERBALIZED UNDERSTANDING. PLAN OF CARE REVIEWED.
[2018-09-25] VITALS: BP 101/67
[2018-09-25] MEDS ORDERED: Lidocaine 2% Visc 15ml soln ORAL PRN (01:15)
[2018-09-25] MEDS ORDERED: HYDROcodone/Acetamin 10/325 tab ORAL PRN (01:45)
[2018-09-25] MEDS: HYDROcodone/Acetamin 10/325 tab ORAL PRN ×3 (03:52→19:35)
[2018-09-25 04:00] VITALS: BP 101/70
--- NOTE | 2018-09-25 07:30 | NUR ---
HAND-OFF: Report given to Mita LLANOS RN. PATIENT RESTING IN BED, NO SIGNS OF DISTRESS NOTED.
[2018-09-25 08:00] VITALS: BP 114/79
--- NOTE | 2018-09-25 08:30 | NUR ---
NURSE NOTES: Received report from BRANDT Merino. Pt is sitting up in bed. Bed is in lowest position, side rails up X2, and call light is within reach. Will continue to monitor.
[2018-09-25] MEDS: Tums 500mg ORAL SCH ×2 (09:18→18:12)
--- NOTE | 2018-09-25 09:22 | General Progress Note ---
Assessment/Plan Assessment/Plan Assessment - malnutrition - esophageal CA, s/p stent - dysphagia - mild anemia Recommendations - add laxatives - soft diet - fu Subjective ROS Limited/Unobtainable: Yes Allergies: Coded Allergies: No Known Allergies (Verified , 01/06/12) Subjective c/p constipation Objective Last 24 Hour Vital Signs Date Time Temp Pulse Resp B/P (MAP) Pulse Ox O2 Delivery O2 Flow Rate FiO2 09/25/18 09:17 122 114/79 09/25/18 09:00 Room Air 21 09/25/18 09:00 Room Air 21 09/25/18 04:00 97.8 129 19 101/70 (80) 96 09/25/18 04:00 129 09/25/18 00:00 127 09/25/18 00:00 98.1 135 17 101/67 (78) 95 09/24/18 21:00 Room Air 09/24/18 20:00 97.6 135 18 104/67 (79) 95 09/24/18 17:32 98.1 09/24/18 17:27 98.1 95 19 115/78 (90) 95 09/24/18 17:19 99 09/24/18 16:00 97.7 133 18 110/78 (89) 94 09/24/18 13:41 105 16 Room Air 09/24/18 12:00 97.8 88 19 109/69 (82) 94 09/24/18 11:09 97.8 Intake and Output 09/24/18 09/25/18 19:00 07:00 Intake Total 810 ml 100 ml Output Total 0 ml Balance 810 ml 100 ml Intake Oral 460 ml 100 ml IV Total 350 ml Output Estimated Blood Loss 0 ml # Voids 3 1 Height (Feet): 5 Height (Inches): 9.00 Weight (Pounds): 160 General Appearance: alert EENT: normal ENT inspection Neck: supple Cardiovascular: normal rate Respiratory/Chest: decreased breath sounds Abdomen: normal bowel sounds, non tender, soft Extremities: non-tender Benito Santiago MD Sep 25, 2018 09:22
[2018-09-25] MEDS: Morphine Sulfate 4mg/ml Inj (IV/IM USE ONLY) IM PRN ×2 (09:31→16:39)
[2018-09-25] MEDS: Heparin 5000 units/ml inj SUBQ SCH ×2 (09:32→20:23)
[2018-09-25 12:00] VITALS: BP 100/68
[2018-09-25] MEDS: Lactulose 10gm/15ml UDC ORAL SCH ×2 (13:14→18:12)
[2018-09-25 16:00] VITALS: BP 96/72
[2018-09-25] MEDS: Docusate 100mg cap ORAL SCH (18:12)
--- NOTE | 2018-09-25 19:34 | NUR ---
HAND-OFF: Report given to BRANDT Herrera. Plan of care endorsed.
--- NOTE | 2018-09-25 19:35 | NUR ---
NURSE NOTES: Received report from Carly Ayers RN. Patient in bed AAO x4 with HOB elevated at semi fowlers, able to verbalize appropriately with no difficulties. IV line intact and patent, cardiac monitoring in place for noted sustained sinus tachy (140's). No complaints of acute pain at this time, and kept clean, dry, and comfortable in bed. Safety precautions in place; siderails x3 up, call light within reach, bed in lowest position, brakes and alarm on at all times. Needs and wants anticipated and attended, will continue plan of care and monitor for nay changes noted
--- NOTE | 2018-09-25 19:46 | NUR ---
NURSE NOTES: Xylocaine 1% order not given today. Will renew order on PICC line placement order date. Continue to monitor Addendum: 09/25/18 at 2005 by ALVARO GARCIA RN NURSE NOTES: Maria Del Rosario hex scheduled at 1999 not given. No central access established at this time
[2018-09-25 20:00] VITALS: BP 123/79
[2018-09-25] MEDS: Dyna-Hex 2% Top Sol 2oz TOPIC SCH (20:00)
--- NOTE | 2018-09-25 20:09 | General Progress Note ---
Assessment/Plan Assessment/Plan Assessment/Recommendations # Esophageal Cancer--undergoing radiation and chemotherapy at [facility] , last chemo was two weeks Cancer made at outside facility --> review outside imaging and treatments patient has received --> outside labs and pathology to be reviewed --> defer to outpatient oncologist for further care, patient requires followup # Thrombocytopenia - likely due to Esophageal cancer, also could be related to underlying medications patient has received. --> Hep panel and HIV ordered --> US abd to evaluate for cirrhosis and hsm ordered --> Peripheral smear ordered to evaluate for blasts /schistocytes --> abx and other meds have been reviewed --> ok for ppx if plt >50k w/ either heparin or lovenox --> Transfuse if Plt < 20k and fever, or if Plt < 10k without fever # Anemia of chronic disease due to underlying chronic medical issues, multifactorial --> Anemia workup has been ordered --> No evidence of hemolysis is noted, peripheral smear has been reviewed. --> Hgb goal >7. Transfuse prn. --> Epogen or iron at this time is not particularly indicated --> Medications have been reviewed The timing of this note does not necessarily reflect the time of the patient was seen Greatly appreciate consultation! Subjective Constitutional: Denies: no symptoms, chills, diaphoresis, fever, malaise, weakness, other HEENT: Denies: no symptoms, eye pain, blurred vision, tearing, double vision, ear pain, ear discharge, nose pain, nose congestion, throat pain, throat swelling, mouth pain, mouth swelling, other Cardiovascular: Denies: no symptoms, chest pain, edema, irregular heart rate, lightheadedness, palpitations, syncope, other Respiratory: Denies: no symptoms, cough, orthopnea, shortness of breath, SOB with excertion, SOB at rest, sputum, stridor, wheezing, other Gastrointestinal/Abdominal: Denies: no symptoms, abdomen distended, abdominal pain, black stools, tarry stools, blood in stool, constipated, diarrhea, difficulty swallowing, nausea, poor appetite, poor fluid intake, rectal bleeding , vomiting, other Genitourinary: Denies: no symptoms, burning, discharge, frequency, flank pain, hematuria, incontinence, pain, urgency, other Neurologic/Psychiatric: Denies: no symptoms, anxiety, depressed, emotional problems, headache, numbness, paresthesia, pre-existing deficit, seizure, tingling, tremors, weakness, other Endocrine: Denies: no symptoms, excessive sweating, flushing, intolerance to cold, intolerance to heat, increased hunger, increased thirst, increased urine, unexplained weight gain, unexplained weight loss, other Hematologic/Lymphatic: Denies: no symptoms, anemia, easy bleeding, easy bruising, other Allergies: Coded Allergies: No Known Allergies (Verified , 01/06/12) Subjective 09/24: Pt is seen by bedside, had EGD with esophageal dilation this a.m, currently stable, no distress. 09/25: awake, comfortable, no fevers or chills. no events, Objective Last 24 Hour Vital Signs Date Time Temp Pulse Resp B/P (MAP) Pulse Ox O2 Delivery O2 Flow Rate FiO2 09/25/18 16:00 142 09/25/18 16:00 98.4 141 18 96/72 (80) 96 09/25/18 12:00 133 09/25/18 12:00 97.9 145 18 100/68 (79) 97 09/25/18 09:17 122 114/79 09/25/18 09:00 Room Air 09/25/18 09:00 Room Air 21 09/25/18 09:00 Room Air 21 09/25/18 08:00 140 09/25/18 08:00 98.0 140 18 114/79 (91) 97 09/25/18 04:00 97.8 129 19 101/70 (80) 96 09/25/18 04:00 129 09/25/18 00:00 127 09/25/18 00:00 98.1 135 17 101/67 (78) 95 09/24/18 21:00 Room Air Intake and Output 09/24/18 09/25/18 19:00 07:00 Intake Total 810 ml 100 ml Output Total 0 ml Balance 810 ml 100 ml Intake Oral 460 ml 100 ml IV Total 350 ml Output Estimated Blood Loss 0 ml # Voids 3 1 Height (Feet): 5 Height (Inches): 9.00 Weight (Pounds): 160 Objective Physical Exam Sp02 EP Interpretation: reviewed, normal General Appearance: no apparent distress, alert, GCS 15, non-toxic Head: normocephalic, atraumatic Eyes: bilateral eye normal inspection, bilateral eye PERRL ENT: hearing grossly normal, normal pharynx, no angioedema, normal voice Neck: full range of motion, supple/symm/no masses Respiratory: chest non-tender, lungs clear, normal breath sounds, no respiratory distress, no retraction, no accessory muscle use, speaking full sentences Jacinto Jean-Baptiste MD Sep 25, 2018 20:09
[2018-09-25] MEDS: Atorvastatin 20mg tab ORAL SCH (20:21)
[2018-09-25] MEDS: Miralax 17gm pkt ORAL SCH (20:22)
--- NOTE | 2018-09-25 21:15 | Operative Note - Dictated ---
DATE OF OPERATION: 09/24/2018 GASTROLOGY CONSULTATION PROCEDURE: Upper gastrointestinal endoscopy with biopsy. SURGEON: William Ruby M.D. ANESTHESIA: Please see the separate anesthesiologist notes for details. PRE-ENDOSCOPIC DIAGNOSIS: Dysphagia in the setting of esophageal cancer. POST-ENDOSCOPIC DIAGNOSES: 1. Esophageal cancer, status post stent placement as expected. 2. Proximal stents narrowing due to the tumor ingrowth status post dilation with a 12, 13.5, 15 mm balloon dilator. PROCEDURE: The procedure, its risks, indications, alternatives, and possible complications were explained and an informed consent was obtained. The patient was then sedated in the left lateral decubitus position and a diagnostic upper endoscope was introduced through the oropharynx and advanced to the duodenum. The endoscope was then gradually withdrawn and the mucosa was examined carefully. Examination of the upper gastrointestinal mucosa revealed approximately 10 to 15 cm long esophageal tumor with an esophageal stent. The were back. The lumen of the stent was patent except for the proximal area where there was tumor ingrowth and this was narrowed. In this area, a 12, 13.5, 15 mm balloon was used to dilate the area with good results. There is some minor bleeding, after this was stopped. The endoscope was removed and the patient was sent to recovery in good condition. COMPLICATIONS: None. RECOMMENDATIONS: 1. Trial of pureed diet. 2. The patient may require repeat endoscopy and dilation versus a second stent placement in the future. William Ruby M.D. DR: JOSE JOB#: [id number] CC:
--- NOTE | 2018-09-25 22:00 | Progress Note ---
DATE: 09/25/2018 SUBJECTIVE: This is an 83-year-old male who came with recurrent abdominal pain, nausea, vomiting, throat CA. The patient is physically doing better. He had EGD. OBJECTIVE: CHEST: Bilaterally clear. CARDIOVASCULAR: Regular rhythm. ABDOMEN: Soft. EXTREMITIES: No CCE. NEUROLOGICAL: Generalized weakness. GENITOURINARY: Deferred. ASSESSMENT: 1. Abdominal pain. 2. Dysphagia. 3. Throat cancer. PLAN: We will currently continue current treatment. GI is on the case. Isiah Vizcaino M.D. DR: Eleuterio JOB#: [id number] CC:
--- NOTE | 2018-09-25 23:39 | Cardiology Progress Note ---
Assessment/Plan Assessment/Plan The patient is seen and examined, full cardiology consult note will be dictated. Objective Last 24 Hour Vital Signs Date Time Temp Pulse Resp B/P (MAP) Pulse Ox O2 Delivery O2 Flow Rate FiO2 09/25/18 21:00 Room Air 09/25/18 20:00 144 09/25/18 20:00 98.2 144 20 123/79 (94) 94 09/25/18 16:00 142 09/25/18 16:00 98.4 141 18 96/72 (80) 96 09/25/18 12:00 133 09/25/18 12:00 97.9 145 18 100/68 (79) 97 09/25/18 09:17 122 114/79 09/25/18 09:00 Room Air 09/25/18 09:00 Room Air 21 09/25/18 09:00 Room Air 21 09/25/18 08:00 140 09/25/18 08:00 98.0 140 18 114/79 (91) 97 09/25/18 04:00 97.8 129 19 101/70 (80) 96 09/25/18 04:00 129 09/25/18 00:00 127 09/25/18 00:00 98.1 135 17 101/67 (78) 95 Intake and Output 09/24/18 09/25/18 19:00 07:00 Intake Total 810 ml 100 ml Output Total 0 ml Balance 810 ml 100 ml Intake Oral 460 ml 100 ml IV Total 350 ml Output Estimated Blood Loss 0 ml # Voids 3 1 Derick Jerez MD Sep 25, 2018 23:39
[2018-09-26] VITALS: BP 108/75
[2018-09-26] MEDS: Morphine Sulfate 4mg/ml Inj (IV/IM USE ONLY) IV PRN ×3 (00:22→21:59)
--- NOTE | 2018-09-26 02:34 | NUR ---
NURSE NOTES: Patient in bed asleep with no S/S of distress at this time, will continue to monitor
[2018-09-26 04:00] VITALS: BP 110/70
[2018-09-26] MEDS: HYDROcodone/Acetamin 10/325 tab ORAL PRN ×3 (05:49→18:50)
--- NOTE | 2018-09-26 07:08 | NUR ---
HAND-OFF: Report given to Azalea Leone RN. Endorsed plan of care, patient in stable condition.
--- NOTE | 2018-09-26 07:15 | NUR ---
NURSE NOTES: Received report from BRANDT Herrera. Patient is in bed AAO x4 with HOB elevated at semi fowlers. IV line is intact, asymptomatic, and patent. Patient has cardiac monitoring in place with sustained sinus tachy (140's). No complaints of acute pain at this time or respiratory distress. Safety precautions in place; siderails x 2 up, call light within reach, bed in lowest position, brakes and alarm on at all times. Will continue plan of care.
--- NOTE | 2018-09-26 07:58 | General Progress Note ---
Assessment/Plan Assessment/Plan Assessment - malnutrition - esophageal CA, s/p stent - dysphagia - mild anemia Recommendations - add laxatives - soft diet - fu Subjective ROS Limited/Unobtainable: Yes Allergies: Coded Allergies: No Known Allergies (Verified , 01/06/12) Subjective no event Objective Last 24 Hour Vital Signs Date Time Temp Pulse Resp B/P (MAP) Pulse Ox O2 Delivery O2 Flow Rate FiO2 09/26/18 04:00 136 09/26/18 04:00 98.2 136 20 110/70 (83) 96 09/26/18 00:00 98.0 136 20 108/75 (86) 95 09/26/18 00:00 137 09/25/18 22:40 105 22 Room Air 09/25/18 21:00 Room Air 09/25/18 20:00 144 09/25/18 20:00 98.2 144 20 123/79 (94) 94 09/25/18 16:00 142 09/25/18 16:00 98.4 141 18 96/72 (80) 96 09/25/18 12:00 133 09/25/18 12:00 97.9 145 18 100/68 (79) 97 09/25/18 09:17 122 114/79 09/25/18 09:00 Room Air 09/25/18 09:00 Room Air 21 09/25/18 09:00 Room Air 21 09/25/18 08:00 140 09/25/18 08:00 98.0 140 18 114/79 (91) 97 Intake and Output 09/25/18 09/26/18 19:00 07:00 Intake Total 240 ml 120 ml Balance 240 ml 120 ml Intake Oral 240 ml 120 ml # Voids 3 1 Laboratory Tests 09/26/18 07:25: White Blood Count [Pending], Red Blood Count [Pending], Hemoglobin [Pending], Hematocrit [Pending], Mean Corpuscular Volume [Pending], Mean Corpuscular Hemoglobin [Pending], Mean Corpuscular Hemoglobin Concent [Pending], Red Cell Distribution Width [Pending], Platelet Count [Pending], Mean Platelet Volume [ Pending], Neutrophils (%) (Auto) [Pending], Lymphocytes (%) (Auto) [Pending], Monocytes (%) (Auto) [Pending], Eosinophils (%) (Auto) [Pending], Basophils (%) (Auto) [Pending], Sodium Level [Pending], Potassium Level [Pending], Chloride Level [Pending], Carbon Dioxide Level [Pending], Blood Urea Nitrogen [Pending], Creatinine [Pending], Estimat Glomerular Filtration Rate [Pending], Glucose Level [Pending], Calcium Level [Pending] Height (Feet): 5 Height (Inches): 9.00 Weight (Pounds): 160 General Appearance: alert EENT: normal ENT inspection Neck: supple Cardiovascular: normal rate Respiratory/Chest: decreased breath sounds Abdomen: normal bowel sounds, non tender, soft Extremities: non-tender Benito Santiago MD Sep 26, 2018 07:58
[2018-09-26 08:00] VITALS: BP 97/70
[2018-09-26 08:10] LABS: HEMATOCRIT 37.6 % (42.0-52.0); HEMOGLOBIN 13.2 G/DL (14.2-18.0); MEAN CORPUSCULAR VOLUME 84 FL (80-99); PLATELET COUNT 98 K/UL (150-450); RED BLOOD COUNT 4.49 M/UL (4.70-6.10); RED CELL DISTRIBUTION WIDTH 13.7 % (11.6-14.8)
[2018-09-26 08:24] LABS: ANION GAP 10 mmol/L (5-15); BLOOD UREA NITROGEN 14 mg/dL (7-18); CALCIUM 8.4 MG/DL (8.5-10.1); CARBON DIOXIDE 28 MMOL/L (21-32); CHLORIDE 101 MMOL/L (98-107); CREATININE 1.1 MG/DL (0.55-1.30); POTASSIUM 3.1 MMOL/L (3.5-5.1); SODIUM 139 MMOL/L (136-145)
--- NOTE | 2018-09-26 08:30 | NUR ---
NURSE NOTES: Dr. Vizcaino saw patient at bedside. Requested orders. In addition, states for Either Dr. Santiago or Dr. Bradford to speak with patient about EGD procedure.
[2018-09-26] MEDS: Docusate 100mg cap ORAL SCH ×2 (09:00→18:49)
[2018-09-26] MEDS: Lactulose 10gm/15ml UDC ORAL SCH ×3 (09:00→18:49)
[2018-09-26] MEDS: Tums 500mg ORAL SCH ×2 (09:01→18:49)
[2018-09-26] MEDS: Heparin 5000 units/ml inj SUBQ SCH ×2 (09:06→21:00)
--- NOTE | 2018-09-26 11:00 | NUR ---
NURSE NOTES: Informed Dr. Santiago about patient tolerating diet. Doctor is aware.
--- NOTE | 2018-09-26 11:11 | Cardiology Report ---
APPROVED REPORT EKG Measurement Heart [id number] Sinus tachycardia Left axis deviation Inferior infarct, age undetermined Abnormal ECG
--- NOTE | 2018-09-26 11:19 | Cardiology Report ---
APPROVED REPORT EKG Measurement Heart [id number] Sinus tachycardia Left anterior fascicular block Nonspecific ST and T wave abnormality Abnormal ECG
[2018-09-26 12:00] VITALS: BP 113/81
[2018-09-26] MEDS: D5NS 1,000 ML IV SCH ×2 (13:26→23:00)
[2018-09-26] MEDS ORDERED: Metoprolol 25mg tab ORAL SCH ×2 (15:45→21:00)
[2018-09-26 16:00] VITALS: BP 97/70
--- NOTE | 2018-09-26 16:29 | Cardiology Progress Note ---
Assessment/Plan Assessment/Plan 1. Sinus tachycardia, start D5NS at 100cc/hr, would consider B-blockers if tachycardia persists. 2. FTT 3. Esophageal cancer, s/p chemoradiation therapy, s/p EGD with dilatation of previously implanted stent. Subjective Subjective Sinus tachycardia at rate of 134. Objective Last 24 Hour Vital Signs Date Time Temp Pulse Resp B/P (MAP) Pulse Ox O2 Delivery O2 Flow Rate FiO2 09/26/18 16:00 97.2 101 18 97/70 (79) 96 09/26/18 13:41 97.5 09/26/18 12:00 97.5 136 18 113/81 (92) 96 09/26/18 11:36 136 09/26/18 09:30 108 16 Room Air 09/26/18 09:30 Room Air 21 09/26/18 09:30 Room Air 21 09/26/18 09:00 Room Air 09/26/18 09:00 144 97/70 09/26/18 08:00 97.8 144 18 97/70 (79) 96 09/26/18 07:45 145 09/26/18 04:00 136 09/26/18 04:00 98.2 136 20 110/70 (83) 96 09/26/18 00:00 98.0 136 20 108/75 (86) 95 09/26/18 00:00 137 09/25/18 22:40 105 22 Room Air 09/25/18 21:00 Room Air 09/25/18 20:00 144 09/25/18 20:00 98.2 144 20 123/79 (94) 94 Intake and Output 09/25/18 09/26/18 18:59 06:59 Intake Total 240 ml 120 ml Balance 240 ml 120 ml Intake Oral 240 ml 120 ml # Voids 3 1 2D Echo: LVEF 55%, Mild LVH, Grade I LVDD, RVSP 45 mmHg Laboratory Tests Test 09/26/18 07:25 White Blood Count 4.0 K/UL (4.8-10.8) L Red Blood Count 4.49 M/UL (4.70-6.10) L Hemoglobin 13.2 G/DL (14.2-18.0) L Hematocrit 37.6 % (42.0-52.0) L Mean Corpuscular Volume 84 FL (80-99) Mean Corpuscular Hemoglobin 29.4 PG (27.0-31.0) Mean Corpuscular Hemoglobin Concent 35.1 G/DL (32.0-36.0) Red Cell Distribution Width 13.7 % (11.6-14.8) Platelet Count 98 K/UL (150-450) L Mean Platelet Volume 5.2 FL (6.5-10.1) L Neutrophils (%) (Auto) % (45.0-75.0) Lymphocytes (%) (Auto) % (20.0-45.0) Monocytes (%) (Auto) % (1.0-10.0) Eosinophils (%) (Auto) % (0.0-3.0) Basophils (%) (Auto) % (0.0-2.0) Differential Total Cells Counted 100 Neutrophils % (Manual) 62 % (45-75) Lymphocytes % (Manual) 12 % (20-45) L Monocytes % (Manual) 16 % (1-10) H Eosinophils % (Manual) 0 % (0-3) Basophils % (Manual) 0 % (0-2) Band Neutrophils 10 % (0-8) H Platelet Estimate Decreased L Platelet Morphology Normal Ovalocytes 1+ Sodium Level 139 MMOL/L (136-145) Potassium Level 3.1 MMOL/L (3.5-5.1) L Chloride Level 101 MMOL/L (98-107) Carbon Dioxide Level 28 MMOL/L (21-32) Anion Gap 10 mmol/L (5-15) Blood Urea Nitrogen 14 mg/dL (7-18) Creatinine 1.1 MG/DL (0.55-1.30) Estimat Glomerular Filtration Rate mL/min (>60) Glucose Level 87 MG/DL (74-106) Calcium Level 8.4 MG/DL (8.5-10.1) L Objective HEENT: Normocephalic and atraumatic, PERRLA, EOMI. Sclerae anicteric. Bitemporal wasting. NECK: No JVD, no carotid bruit. CHEST: Clear to auscultation. CARDIOVASCULAR: Regular rate and rhythm, no HSM, + BS, soft. ABDOMEN: Soft, non-tender, non-distended, +BS. EXTREMITIES: No edema, clubbing or cyanosis. Derick Jerez MD Sep 26, 2018 16:29
--- NOTE | 2018-09-26 16:45 | Consultation ---
DATE OF CONSULTATION: 09/25/2018 NOTE: INCOMPLETE DICTATION CARDIOLOGY CONSULTATION CONSULTING PHYSICIAN: Derick Jerez M.D. REFERRING PHYSICIAN: Kishor Vizcaino M.D. REASON FOR CONSULTATION: Management of tachycardia. HISTORY OF PRESENT ILLNESS.: Derick Jerez M.D. DR: JM JOB#: [id number] CC:
[2018-09-26] MEDS ORDERED: 1/2 NS 1000ml IV ONE (17:21)
--- NOTE | 2018-09-26 19:00 | NUR ---
NURSE NOTES: Updated Dr. Jerez about heart rate of patient throughout the day. From 7am to 3:30pm, patient was in the 140s-130s. After 3:30pm, patient heart rate went down to the 100s and stayed their til 5:30pm. After 5:30pm, heart rate went up to 130s. Dr. Jerez had blood pressure medications adjusted. Also remind doctor about potassium 3.1. No new orders for the lab value. Endorsed to maintenance supervisor 2nd shift nurse.
--- NOTE | 2018-09-26 19:00 | NUR ---
NURSE NOTES: For lunch, patient was unable to tolerate mechanical soft. For dinner, patient took a few bites of puree food and states he couldn't finish it. He ate soups and juices. Endorse to security shift supervisor nurse of appetite tolerance.
[2018-09-26] MEDS ORDERED: Metoprolol Tartrate 50mg tab ORAL SCH (19:15)
--- NOTE | 2018-09-26 19:30 | NUR ---
NURSE NOTES: Informed by day shift nurse, no orders received from MD regarding potassium 3.1, although MD was made aware. No labs ordered for AM either. Will continue to monitor patient.
[2018-09-26 20:00] VITALS: BP 93/71
[2018-09-26] MEDS: Dyna-Hex 2% Top Sol 2oz TOPIC SCH (20:00)
--- NOTE | 2018-09-26 20:00 | Consultation ---
DATE OF CONSULTATION: 09/25/2018 CARDIOLOGY CONSULTATION CONSULTING PHYSICIAN: Derick Jerez M.D. REFERRING PHYSICIAN: Isiah Vizcaino M.D. REASON FOR CONSULTATION: Management of tachycardia. HISTORY OF PRESENT ILLNESS: The patient is a very unfortunate 83-year-old gentleman, who presents to the hospital with generalized body pain, inability to tolerate pain despite using [place] as well as inability to pass solid food down. He has history of esophageal carcinoma and had chemoradiation therapy. He has had endoscopic procedure for placement of tube to keep the lumen open. At the time of arrival to the facility, the patient's blood pressure was 85/60 mmHg and heart rate was 129. The patient's 12-lead electrocardiogram was significant for sinus tachycardia at a rate of 117 with left anterior fascicular block and nonspecific ST and T-wave abnormalities. He was admitted to telemetry for further evaluation and management of the above condition. Cardiology consultation was made at the request of Dr. Vizcaino for addressing the tachycardia. The patient was seen by Dr. Ruby during the first couple of days of hospitalization and on September 24, he underwent upper endoscopy procedure, which revealed esophageal stent position and placement is proper and proximal was dilated up to 15 mmHg. The patient was started on a pureed diet. At the bedside, he denies any chest pain or shortness of breath. PAST MEDICAL HISTORY: 1. Esophageal carcinoma, status post stent placement with recent dilatation of 15 mg. 2. History of hypertension. 3. COPD. 4. GERD. MEDICATIONS: List of medications at home includes albuterol 2.5 mg HHN q.4 h., alendronate 70 mg p.o. every weekly, Norvasc 2.5 mg daily, atorvastatin 20 mg p.o. nightly, Symbicort 160/4.5 mcg inhaler once daily, calcium carbonate 500 mg p.o. twice daily, Atrovent HFA g inhaler as needed, Dulera two puffs inhaler q.12 h., omeprazole 20 mg p.o. daily, Zocor 20 mg p.o. nightly, and Spiriva one puff inhaled daily. ALLERGIES: No known drug allergies. SOCIAL HISTORY: No history of tobacco, alcohol, or illicit drug use. FAMILY HISTORY: No premature coronary artery disease in first-degree relative. REVIEW OF SYSTEMS: HEENT: Denies any headache, diplopia, or blurred vision. CONSTITUTIONAL: Denies any fever, chills, night sweats, or weight loss. CARDIOVASCULAR: Denies any chest pain, shortness breath, PND, orthopnea, or leg swelling. PULMONARY: Denies any cough, hemoptysis, or wheezing. GASTROINTESTINAL: Problems with dysphagia, solid foods, status post EGD. Denies any GI bleed. GENITOURINARY: Denies any hematuria, dysuria, or incontinence. NEUROLOGIC: Denies any motor dysfunction, sensory deficit, or altered speech. PHYSICAL EXAMINATION: VITAL SIGNS: At the time of arrival to the hospital, blood pressure was 85/60, pulse of 129, respirations of 20, temperature 98.1 degrees Fahrenheit, and O2 saturation 96% on room air. GENERAL: The patient is a very pleasant, 83-year-old gentleman, who is in no apparent respiratory distress. Alert and oriented x4. HEENT: Atraumatic and normocephalic. Anicteric. Pupils are equal, round, and reactive to light and accommodation. Extraocular muscles intact. NECK: JVP less than 5 cm. No carotid bruit. Carotid upstroke is 2+ bilaterally. CARDIOVASCULAR: Normal S1 and S2. Tachycardic. No murmurs, gallops, or rubs. LUNGS: Clear to auscultation bilaterally. ABDOMEN: Soft, nontender, nondistended. No hepatosplenomegaly. Positive bowel sounds. EXTREMITIES: No evidence of edema, clubbing, or cyanosis. LABORATORY FINDINGS: WBC 3.7, hemoglobin 13.9, hematocrit 41.5, and platelet count is 135,000. Sodium 139, potassium is 3.9, chloride 101, bicarbonate 28, BUN 27, creatinine 1.3, glucose 92, and calcium 9.1. Troponin I was 0.008. INR was 1.0. Hepatitis A and B antigen core IgM antibody and hepatitis C antibody were all negative. HIV 1 and 2 antibody rapid negative. Chest x-ray showed no acute cardiopulmonary disease. ASSESSMENT AND PLAN: The patient is a very unfortunate 83-year-old gentleman, seen in Cardiology consultation. 1. Sinus tachycardia. This is most likely secondary to not tolerating p.o. and food due to progressive dysphagia. BUN and creatinine level showed the prerenal ratio suggestive of possible dehydration. There is also contraction alkalosis in favor of the dehydration and hypovolemia. The patient will get D5 normal saline to increase intravascular volume. He was also hypotensive at the time of arrival to the hospital. A 12-lead electrocardiogram does not show any evidence of ischemia. I would consider AV zeb agents if tachycardia persists. 2. We will obtain 2D echocardiography for assessment of left ventricular systolic and diastolic function. 3. History of esophageal carcinoma status post esophagogastroduodenoscopy with dilatation of the stent status post chemoradiation. 4. History of hypertension. 5. History of chronic obstructive pulmonary disease. I would like to thank, Dr. Vizcaino, for the courtesy of this consultation. Derick Jerez M.D. DR: Ab JOB#: [id number] CC:
--- NOTE | 2018-09-26 20:45 | NUR ---
HAND-OFF: Report given to Wilbert Porter.
--- NOTE | 2018-09-26 20:45 | NUR ---
NURSE NOTES: Received report from Azalea Leone RN. Patient is awake in bed with no s/s of acute distress noted. A/O x4. patient monitor shows sinus tach. Saturating well on room air. Left hand 20g IV saline lock, noted to be intact and patent. Bed locked in lowest position with side rails up x2. Call light left within reach. Will continue to monitor.
[2018-09-26] MEDS: Metoprolol Tartrate 50mg tab ORAL SCH (21:00)
[2018-09-26] MEDS: Atorvastatin 20mg tab ORAL SCH (21:58)
[2018-09-26] MEDS: Miralax 17gm pkt ORAL SCH (21:58)
--- NOTE | 2018-09-26 22:00 | Progress Note ---
DATE: 09/26/2018 SUBJECTIVE: This is an elderly male, who is currently doing fine. No distress. Abdominal pain, nausea, vomiting is improving. The patient also has infrequent tachy-arrhythmia. The patient currently otherwise asymptomatic. OBJECTIVE: CHEST: Bilaterally clear. CARDIOVASCULAR: Regular rhythm. ABDOMEN: Soft. ASSESSMENT AND PLAN: 1. Recurrent cardiac arrhythmia. Check 2D echo. Cardiology consult. 2. Throat cancer. 3. Recurrent nausea and vomiting is improving. Continue current treatment. Isiah Vizcaino M.D. DR: AMITA JOB#: [id number] CC:
[2018-09-27] VITALS: BP 105/71
[2018-09-27] MEDS: HYDROcodone/Acetamin 10/325 tab ORAL PRN ×2 (02:21→08:34)
[2018-09-27 04:00] VITALS: BP 92/60
--- NOTE | 2018-09-27 07:15 | NUR ---
HAND-OFF: Report given to Anil Nixon RN.
--- NOTE | 2018-09-27 07:30 | NUR ---
NURSE NOTES: I received the patient awake and resting in bed. Patient alert and oriented x4. Patient does not display any signs of distress or SOB. Bed in the lowest position and call light within reach. I will continue to monitor the patient and implement care.
[2018-09-27 08:00] VITALS: BP 90/53
[2018-09-27] MEDS: D5NS 1,000 ML IV SCH (08:30)
[2018-09-27] MEDS: Lactulose 10gm/15ml UDC ORAL SCH ×2 (08:33→12:31)
[2018-09-27] MEDS: Heparin 5000 units/ml inj SUBQ SCH (08:34)
[2018-09-27] MEDS: Tums 500mg ORAL SCH (08:35)
[2018-09-27] MEDS: Docusate 100mg cap ORAL SCH (08:35)
--- NOTE | 2018-09-27 08:41 | Diagnostic Imaging Report ---
Indication: Abdominal pain, abnormal renal function tests Technique: Chowdary-scale and duplex images of the upper abdomen were obtained there are Doppler interrogation of the pancreatic and hepatic vessels Comparison: none Findings: Exam is limited due to patient body habitus and excess bowel gas. Gallbladder is unremarkable, without stones, wall thickening, nor pericholecystic fluid. Sonographic Forte's sign is negative. Common bile duct measures 5 mm in diameter. No intrahepatic biliary ductal dilatation. Liver demonstrates normal echogenicity. There is an exophytic 3 cm cyst coming off of the left lobe. Portal vein and hepatic veins are patent. Pancreas is obscured by bowel gas. Spleen cannot be visualized Left kidney measures 9.2 cm in length. Right kidney measures 8.5 cm length. Both kidneys demonstrate normal echogenicity. There is no hydronephrosis. Left kidney demonstrates a 1.1 cm lower pole cyst. 11 mm calcification is seen in the right renal sinus. . Abdominal aorta is partially obscured by bowel gas, visualized portions are non-aneurysmal . Impression: . Limited exam, as described. Note nonvisualization of the spleen, portions of the pancreas, distal abdominal aorta Negative for gallstones, dilated ducts, or other acute abnormality Nonobstructive right renal calyceal calculus Incidental findings left renal cyst, left lobe hepatic cyst
[2018-09-27] MEDS: Metoprolol Tartrate 50mg tab ORAL SCH (09:00)
[2018-09-27] MEDS ORDERED: [UNRECOGNIZED DRUG - OTHER] MISC SCH (10:00)
[2018-09-27] MEDS: Morphine Sulfate 4mg/ml Inj (IV/IM USE ONLY) IV PRN (10:51)
[2018-09-27] MEDS ORDERED: Lidocaine 2% Visc 15ml soln ORAL PRN (11:15)
[2018-09-27] MEDS ORDERED: METOPROLOL TART50 MG ORAL (11:28)
[2018-09-27] MEDS ORDERED: LIDOCAINE VISC100 ML ORAL (11:31)
[2018-09-27] MEDS ORDERED: ZOFRAN4 M1 ORAL (11:32)
[2018-09-27] MEDS ORDERED: NYSTATIN15 G2 PO (11:33)
--- NOTE | 2018-09-27 11:40 | NUR ---
*-* MAYANK PLANNING *-* PATIENT HAS BEEN REFERRED TO: [facility] P:[phone] F:[phone] Addendum: 09/27/18 at 1700 by ANTWAN SKY CM SPOKE TO DON AND PATIENT HAS BEEN ACCEPTED.
[2018-09-27 11:48] VITALS: BP 92/65
--- NOTE | 2018-09-27 11:56 | NUR ---
NURSE NOTES: I attempted to remove the patient's Lidocaine patch but did not find the patch on the patient. The patch was not found in the patient's bed. Patient resting in bed , bed in the lowest position and call light within reach.
--- NOTE | 2018-09-27 12:00 | Progress Note ---
DATE: 09/27/2018 REASON FOR ADMISSION: Dysphagia, abdominal pain, chest pain. OBJECTIVE: GENERAL: This is an elderly male. He still have difficulty in swallowing, although he has EGD and also has episode of cardiac arrhythmia, which is controlled now. His echo showing EF is 55%. EGD was done, Dr. Santiago, was on the case. VITAL SIGNS: Currently, blood pressure is 90/53, pulse 94, respirations 20, and temperature 98.6. HEENT: NAD. CHEST: Bilateral clear. CARDIOVASCULAR: Regular rhythm. No gallop. No murmur. ABDOMEN: Soft. Positive bowel sounds. EXTREMITIES: No CCE. NEUROLOGIC: No focal deficit. LABORATORY EXAMINATION: Potassium 3.1. Otherwise, troponin 0.08. A 2D echo, 55%. ASSESSMENT AND PLAN: Dysphagia. We will once the diet is started pureed diet, likely consider video swallow evaluation and continue current treatment and replace the potassium. Isiah Vizcaino M.D. DR: AYLEEN JOB#: [id number] CC:
--- NOTE | 2018-09-27 14:36 | NUR ---
RD ASSESSMENT & RECOMMENDATIONS SEE CARE ACTIVITY FOR COMPLETE ASSESSMENT DAILY ESTIMATED NEEDS: Needs based on CA, chemo 72.7 25-35 kcals/kg 5434-2843 total kcals 1-2 g protein/kg 73-145 g total protein 25-30 mL/kg 8251-7465 total fluid mLs NUTRITION DIAGNOSIS: * Swallowing difficulty r/t dysphagia and cancer as evidenced by pt w/ esophageal ca, now s/p EGD, w/ esophageal stent placement, on puree diet, poor and variable PO intake at this time. CURRENT DIET:REGULAR, pureed moist PO DIET RECOMMENDATIONS: REGULAR DIET -> texture per SKYLIGHTS ASSEMBLER / MD ADDITIONAL RECOMMENDATIONS: 1) Calibrated bedscale wt for accurate CBW- pt reports wt loss -> w/ added SPR mattress + Striker pump 2) Weekly wt monitoring given h/o wt loss 3) Ensure Enlive TID w/ meals (Sheldon flavor per pt request) 8oz Milk @ all meals, Pureed soup @ lunch and dinner
--- NOTE | 2018-09-27 15:29 | NUR ---
ST NOTE: BEDSIDE SWALLOW EVAL RECEIVED BEDSIDE SWALLOW EVAL ORDER CHART REVIEWED PRIOR THE EVALUATION PT IS A 83-YEAR-OLD MALE WHO WAS ADMITTED DUE TO PAIN. DYSPHAGIA RISK FACTORS: ESOPHAGEAL CA(11/2017), PT RECEIVED CHEMOTHERAPY AND RADIATION THERAPY AT [facility], AND ENDED 2 WKS AGO, PT HAS H/O HTN, COPD, GERD, H/O SMOKING(QUIT IN 2009), H/O LUNG CA, R LOBECTOMY 02/2012. PLOF: PT RESIDES AT HOME WITH FAMILY. CURRENT STATUS: PT SEEN AT BEDSIDE IN PM. ALERT, COOPERATIVE, ORIENTED X 4. PT HAD STENT PLACEMENT. PER PT, FEELING LOTS OF PAIN DURING SWALLOW, ESPECIALLY WITH SOLID FOOD. PER PT, HAS BEEN BLENDING ALL THE FOOD AT HOME; AND TAKING ENSURE. GIVEN PO TRIALS: THIN(CUP) INITIAL IMPRESSION: PROBABLE ESOPHAGEAL DYSPHAGIA(CAUSING PAIN IN THE CHEST) GOOD ORAL TRANSIT TIME AND OROPHARYNGEAL TRANSIT TIME, GOOD LARYNGEAL ELEVATION, NO OVERT S/S OF ASPIRATION. HOWEVER, PT REPORTED FEELING PAIN AROUND THE CHEST DURING THE SWALLOW. DISCUSSED WITH PT RE: DIET CONSISTENCIES. RECOMMENDATIONS: 1. FOR QUALITY OF LIFE, CONTINUE PO DIET TOLERATED. CONSIDER BLENDED SOUP DIET. 2. ASPIRATION/REFLUX PRECAUTIONS 3. CONSIDER VIDEOSWALLOW STUDY OP IF NEEDED 4. CONTINUE HIGH CALORIE SUPPLEMENT. RECEIVED VIDEOSWALLOW STUDY, DUE TO SCHEDULING CONFLICT, UNABLE TO COMPLETE AT THIS TIME. D/W PT AND RNEBONIE.
[2018-09-27 16:00] VITALS: BP 105/71
--- NOTE | 2018-09-27 16:49 | NUR ---
NURSE NOTES: Patient discharged in stable condition. Patient's IV was removed and the IV site did display any signs of bleeding, redness or swelling. Patient confirmed he was in possession of all his belongings. Patient was transported via wheelchair to the [facility] where he was met by his daughter who transported him home. Patient was alert and oriented x4 and in stable condition upon discharge.
--- NOTE | 2018-09-27 17:33 | General Progress Note ---
Assessment/Plan Assessment/Plan Assessment/Recommendations # Esophageal Cancer--undergoing radiation and chemotherapy at [facility] , last chemo was two weeks Cancer made at outside facility --> review outside imaging and treatments patient has received --> outside labs and pathology to be reviewed --> defer to outpatient oncologist for further care, patient requires followup # Thrombocytopenia - likely due to Esophageal cancer, also could be related to underlying medications patient has received. --> Hep panel and HIV ordered --> US abd to evaluate for cirrhosis and hsm ordered --> Peripheral smear ordered to evaluate for blasts /schistocytes --> abx and other meds have been reviewed --> ok for ppx if plt >50k w/ either heparin or lovenox --> Transfuse if Plt < 20k and fever, or if Plt < 10k without fever # Anemia of chronic disease due to underlying chronic medical issues, multifactorial --> Anemia workup has been ordered --> No evidence of hemolysis is noted, peripheral smear has been reviewed. --> Hgb goal >7. Transfuse prn. --> Epogen or iron at this time is not particularly indicated --> Medications have been reviewed The timing of this note does not necessarily reflect the time of the patient was seen Greatly appreciate consultation! Subjective Constitutional: Denies: no symptoms, chills, diaphoresis, fever, malaise, weakness, other HEENT: Denies: no symptoms, eye pain, blurred vision, tearing, double vision, ear pain, ear discharge, nose pain, nose congestion, throat pain, throat swelling, mouth pain, mouth swelling, other Cardiovascular: Denies: no symptoms, chest pain, edema, irregular heart rate, lightheadedness, palpitations, syncope, other Respiratory: Denies: no symptoms, cough, orthopnea, shortness of breath, SOB with excertion, SOB at rest, sputum, stridor, wheezing, other Gastrointestinal/Abdominal: Denies: no symptoms, abdomen distended, abdominal pain, black stools, tarry stools, blood in stool, constipated, diarrhea, difficulty swallowing, nausea, poor appetite, poor fluid intake, rectal bleeding , vomiting, other Genitourinary: Denies: no symptoms, burning, discharge, frequency, flank pain, hematuria, incontinence, pain, urgency, other Neurologic/Psychiatric: Denies: no symptoms, anxiety, depressed, emotional problems, headache, numbness, paresthesia, pre-existing deficit, seizure, tingling, tremors, weakness, other Hematologic/Lymphatic: Denies: no symptoms, anemia, easy bleeding, easy bruising, other Allergies: Coded Allergies: No Known Allergies (Verified , 01/06/12) Subjective 09/24: Pt is seen by bedside, had EGD with esophageal dilation this a.m, currently stable, no distress. 09/25: awake, comfortable, no fevers or chills. no events, 09/27: seen by bedside, awake, comfortable, no events Objective Last 24 Hour Vital Signs Date Time Temp Pulse Resp B/P (MAP) Pulse Ox O2 Delivery O2 Flow Rate FiO2 09/27/18 16:00 96.8 111 20 105/71 (82) 99 09/27/18 11:48 98.3 93 20 92/65 (74) 97 09/27/18 11:36 95 09/27/18 11:21 98.3 09/27/18 09:04 98.6 09/27/18 09:00 Room Air Room Air 09/27/18 09:00 100 90/53 09/27/18 09:00 100 90/53 09/27/18 08:57 Room Air 21 09/27/18 08:57 100 17 97 Room Air 21 09/27/18 08:56 100 17 97 Room Air 21 09/27/18 08:00 98.6 94 20 90/53 (65) 93 09/27/18 07:30 89 09/27/18 04:03 93 09/27/18 04:00 97.6 98 18 92/60 (71) 91 09/27/18 00:00 97.6 90 18 105/71 (82) 91 09/26/18 23:53 88 09/26/18 21:08 88 20 Room Air 21 09/26/18 21:00 132 93/71 09/26/18 21:00 Room Air 09/26/18 20:01 125 09/26/18 20:00 97.9 132 19 93/71 (78) 92 09/26/18 19:22 134 105/70 Intake and Output 09/26/18 09/27/18 18:59 06:59 Intake Total 360 ml 1300 ml Balance 360 ml 1300 ml Intake Oral 360 ml 100 ml IV Total 1200 ml # Voids 2 1 Height (Feet): 5 Height (Inches): 9.00 Weight (Pounds): 160 Objective Physical Exam Sp02 EP Interpretation: reviewed, normal General Appearance: no apparent distress, alert, GCS 15, non-toxic Head: normocephalic, atraumatic Eyes: bilateral eye normal inspection, bilateral eye PERRL ENT: hearing grossly normal, normal pharynx, no angioedema, normal voice Neck: full range of motion, supple/symm/no masses Respiratory: chest non-tender, lungs clear, normal breath sounds, no respiratory distress, no retraction, no accessory muscle use, speaking full sentences Jacinto Jean-Baptiste MD Sep 27, 2018 17:33
--- NOTE | 2018-09-27 20:28 | General Progress Note ---
Assessment/Plan Assessment/Plan Assessment - malnutrition - esophageal CA, s/p stent - dilated - dysphagia - mild anemia Recommendations - pureed diet - Lido AC TID, 5cc - watch intake and hydration status Subjective Allergies: Coded Allergies: No Known Allergies (Verified , 01/06/12) Subjective says dysphagia improved after EGD/dilation still has odynphagia advised will Rx viscous lido ac Objective Last 24 Hour Vital Signs Date Time Temp Pulse Resp B/P (MAP) Pulse Ox O2 Delivery O2 Flow Rate FiO2 09/27/18 16:00 96.8 111 20 105/71 (82) 99 09/27/18 11:48 98.3 93 20 92/65 (74) 97 09/27/18 11:36 95 09/27/18 11:21 98.3 09/27/18 09:04 98.6 09/27/18 09:00 Room Air Room Air 09/27/18 09:00 100 90/53 09/27/18 09:00 100 90/53 09/27/18 08:57 Room Air 21 09/27/18 08:57 100 17 97 Room Air 21 09/27/18 08:56 100 17 97 Room Air 21 09/27/18 08:00 98.6 94 20 90/53 (65) 93 09/27/18 07:30 89 09/27/18 04:03 93 09/27/18 04:00 97.6 98 18 92/60 (71) 91 09/27/18 00:00 97.6 90 18 105/71 (82) 91 09/26/18 23:53 88 09/26/18 21:08 88 20 Room Air 21 09/26/18 21:00 132 93/71 09/26/18 21:00 Room Air Intake and Output 09/26/18 09/27/18 18:59 06:59 Intake Total 360 ml 1300 ml Balance 360 ml 1300 ml Intake Oral 360 ml 100 ml IV Total 1200 ml # Voids 2 1 Height (Feet): 5 Height (Inches): 9.00 Weight (Pounds): 160 Objective WDWN NCAT supple CTA RRR soft ND No edema non focal William Ruby MD Sep 27, 2018 20:28
--- NOTE | 2018-09-28 10:34 | Discharge Summary ---
Discharge Summary Discharge Summary _ DATE OF ADMISSION: 09/22/2018 DATE OF DISCHARGE: 09/27/2018 DISCHARGED BY: Dr. Vizcaino REASON FOR ADMISSION: 83 years old male with history of hypertension, COPD, esophageal cancer, currently undergoing radiation and chemotherapy , presented with generalized body pain. Patient has Winthrop at the facility, but does not want to take it too much due to fear of becoming addicted to narcotics. He denied fever or chills. He reported some nausea and vomiting after chemotherapy. Upon evaluation blood pressure was on low side 85/60 and patient was tachycardic with heart rate 129. Laboratory workup revealed leukopenia WBC 3.7 ,hemoglobin 13.9 ,hematocrit 41.5 , platelets 135. Stable electrolytes. BUN 27 creatinine 1.3. Glucose 92. Stable LFT. Albumin 2.6. Troponin negative. EKG revealed sinus tachycardia with left anterior fascicular block. No acute ischemic changes, no ectopy. LFT and Lipase within normal limits. Chest x-ray revealed no acute cardiopulmonary pathology. Patient was admitted for further management. CONSULTANTS: powder and primer canning leader Dr. Jerez GI specialist Dr. Ruby architectural inspector/oncologist Dr. Jean-Baptiste HOSPITAL COURSE: Patient admitted to telemetry floor. Patient was kept n.p.o. and started on the IV fluids. Symptomatic treatment with antiemetic provided as needed. GI specialist, powder and primer canning leader and oncologist closely followed Patient undergone upper endoscopy with biopsy on due to dysphagia in the setting of esophageal cancer. During the procedure, patient was noted to have a stent , however proximal stent narrowing due to the tumor ingrowth was observed. Subsequently patient had dilatation of the proximal stent narrowing with use of balloon with good results afterwards. GI specialist recommended to start pured diet as tolerated with strict aspiration precautions. Per GI specialist patient may require to repeat endoscopy with dilatation versus have a second stent placement in future. Bedside swallow evaluation revealed esophageal dysphagia. Diet initiated as per speech therapist recommendation with strict aspiration / reflux precautions and dietary supplement as recommended by mud jack nozzleman. Speech therapist recommended video swallow evaluation , which can be done as an outpatient. Weight Guesser recommendation implemented in plan of care to optimize nutritional status. Tool Shaper Set Up Operator followed. Patient initially presented with tachycardia and hypotension, likely due to dehydration. Patient started initially on IV fluids as mentioned above. Sinus tachycardia resolved. When blood pressure stabilized , it was managed with beta chau and low- dose of calcium channel chau and remained stable. DVT prophylaxis provided Renal parameters and electrolytes were closely monitored and electrolytes corrected as needed. Nephrotoxins were avoided. BUN from initial 27 down to 14 and creatinine from 1.3 down to 1.1. Oncologist followed. Patient on radiation and chemotherapy at [facility], last chemotherapy was 2 weeks ago. Oncologist recommended defer management to outpatient oncologist for further care. Patient will require further follow-up. Leukopenia was likely due to esophageal cancer and treatment with chemo and radiation. Noted mild anemia , likely anemia of chronic disease. Hemoglobin hematocrit were closely monitored with goal to keep hemoglobin above 7. Count remained stable. Prior to discharge hemoglobin 13.2, hematocrit 37.6. Platelet count 98. WBC 4.0. No Epogen or iron therapy were indicated at this time. Hepatitis panel was negative. HIV test was nonreactive. Abdominal ultrasound revealed no evidence of gallstones, dilated duct or other acute abnormality. Nonobstructing right renal calyceal calculus. Thrombocytopenia and leukopenia were likely secondary to current undergoing chemotherapy and radiation. Pain management was addressed with Lidocaine patch and spare dosing of Winthrop on as needed basis. Pain was controlled prior to discharge. Bowel regimen instituted. Supportive care provided. Patient clinically stabilized and was ready for transfer to intermediate facility for continuation of care. FINAL DIAGNOSES: Esophageal cancer status post prior stent placement Dysphagia in setting of esophageal cancer Severe protein calorie malnutrition Status post EGD with dilation of stent Sinus tachycardia likely due to dehydration- resolved Mild anemia Thrombocytopenia History of hypertension with initial hypotension , likely due to dehydration DISCHARGE MEDICATIONS: See Medication Reconciliation list. DISCHARGE INSTRUCTIONS: Patient was discharged to the intermediate facility. Follow up with medical doctor at the facility. I have been assigned to dictate discharge summary for this account. I was not involved in the patient's management. Anitha Umana NP Sep 28, 2018 10:34
== END 2018-09-27 16:51 | disposition home health service (06) | DRG 240 ==
LOC: EMR 14:30 → 3E 18:04 → EDBEDREQ 18:24 → 2E 09-24 21:10
PROC: 0D758ZZ Dilation of Esophagus, Via Natural or Artificial Opening Endoscopic (ICD-10-PCS; principal; 2018-09-24 07:16)
DX: C15.9 Malignant neoplasm of esophagus, unspecified (principal); E43 Unspecified severe protein-calorie malnutrition; E86.0 Dehydration; D69.6 Thrombocytopenia, unspecified; R13.19 Other dysphagia; D64.9 Anemia, unspecified; D63.8 Anemia in other chronic diseases classified elsewhere; J44.9 Chronic obstructive pulmonary disease, unspecified; E78.5 Hyperlipidemia, unspecified; I10 Essential (primary) hypertension; K21.9 Gastro-esophageal reflux disease without esophagitis; Z79.899 Other long term (current) drug therapy; Z92.3 Personal history of irradiation; R00.0 Tachycardia, unspecified; E46 Unspecified protein-calorie malnutrition
CPT/HCPCS: 36415; 71045; 76700; 80048; 80053; 82550; 82553; 83690; 84484; 85007; 85025; 85610; 85730; 86703; 86705; 86709; 86803; 87340; 93005; 93306; 94003; 94150; 94640; 94664; 96361; 96374; 96375; 99285; J2405; J8499